=== PATIENT | male | born 1945 | race Caucasian/White ===

== ENCOUNTER → 2020-02-05 11:58 | Outpatient (BNVA) | payer MEDICARE, OTHER, SELFPAY | PROVIDERS: PCP Family Medicine; Visit Provider Family Medicine | DX: E78.5 Hyperlipidemia, unspecified (principal); Z12.5 Encounter for screening for malignant neoplasm of prostate; I10 Essential (primary) hypertension; H61.20 Impacted cerumen, unspecified ear | CPT/HCPCS: 80053; 80061; G0103 ==

== ENCOUNTER 2020-03-19 15:45 | Outpatient (CLI) | payer OTHER, SELFPAY ==
--- NOTE | 2020-03-19 | USCV_ITS ---
Kemar Abel Age: 74 Gender: M : 1945 Exam Date: 03/19/2020 16:11 Ordering Phys: Norris Corona MD Technologist: Natalee Alonso Exam Location: [facility] [place] Indication: CAD BP: / HR: 55 Rhythm: Sinus Technical Quality: Fair MEASUREMENTS (Male / Female) Normal Values 2D ECHO LV Diastolic Diameter PLAX 5.2 cm 4.2 - 5.9 / 3.9 - 5.3 cm LV Systolic Diameter PLAX 3.0 cm LV Chamber Size 6.6 cm IVS Diastolic Thickness 1.7 cm 0.6 - 1.0 / 0.6 - 0.9 cm IVS Systolic Thickness 2.1 cm LVPW Diastolic Thickness 1.3 cm 0.6 - 1.0 / 0.6 - 0.9 cm LVPW Systolic Thickness 1.8 cm RV Chamber Size 4.4 cm LVOT Diameter 2.0 cm LV Ejection Fraction 2D Teich 73.4 % LV Ejection Fraction MOD 2C 61.0 % LV Ejection Fraction 2C AL 64.5 % LA Diameter 4.6 cm LA Width 5.4 cm LA Height 6.6 cm RA Width 3.9 cm RA Height 5.3 cm Aorta at Sinotubular Diameter 3.3 cm M-MODE LV Diastolic Diameter MM 7.4 cm 4.2 - 5.9 / 3.9 - 5.3 cm LV Systolic Diameter MM 4.8 cm LV Ejection Fraction MM Teich 62.2 % IVS Diastolic Thickness MM 0.5 cm 0.6 - 1.0 / 0.6 - 0.9 cm IVS Systolic Thickness MM 1.2 cm LVPW Diastolic Thickness MM 1.2 cm 0.6 - 1.0 / 0.6 - 0.9 cm LVPW Systolic Thickness MM 1.9 cm Aortic Annulus Diameter 3.9 cm LA Ao Ratio MM 1.2 MV E Point Septal Separation 0.3 cm DOPPLER AV Peak Velocity 156.0 cm/s LVOT Peak Velocity 110.0 cm/s AV Area Cont Eq vti 2.6 cm squared AV Area Cont Eq pk 2.3 cm squared MV Area PHT 2.2 cm squared Mitral E to A Ratio 1.5 MV E' Velocity 10.0 cm/s Mitral E to MV E' Ratio 8.3 Mitral E to LV E' Lateral Ratio 8.1 Mitral E to LV E' Septal Ratio 8.4 TR Peak Velocity 282.2 cm/s TR Peak Gradient 31.9 mmHg TR Mean Velocity 229.2 cm/s TR Mean Gradient 22.3 mmHg TR Velocity Time Integral 70.7 cm TV Peak E Velocity 52.0 cm/s Right Atrial Pressure 3.0 mmHg Pulmonary Artery Systolic Pressu 34.9 mmHg PV Peak Velocity 55.0 cm/s FINDINGS Left Ventricle Normal left ventricular cavity size. Normal left ventricular systolic function. No regional wall motion abnormalities. Left ventricular ejection fraction is estimated at 55 %. Grade II/IV diastolic dysfunction, moderately elevated filling pressures. Right Ventricle The right ventricle is normal in size and function. Right Atrium The right atrium is normal in size. Left Atrium Moderately increased left atrial size. Mitral Valve Moderately thickened mitral valve. No mitral valve stenosis. Mild-moderate mitral valve regurgitation. Aortic Valve Moderate aortic valve calcification. No significant stenosis, mean gradient 5.3 mmHg, BILL 2.6 cm squared. Tricuspid Valve Mild tricuspid valve regurgitation. Pulmonic Valve No pulmonary valve stenosis. No pulmonary valve regurgitation. Pericardium Normal pericardium without effusion. Aorta Normal ascending aorta dimension. CONCLUSIONS 1-Normal left ventricular cavity size. Normal left ventricular systolic function. No regional wall motion abnormalities. Left ventricular ejection fraction is estimated at 55 %. Grade II/IV diastolic dysfunction, moderately elevated filling pressures. 2-Moderate aortic valve calcification. No significant stenosis, mean gradient 5.3 mmHg, BILL 2.6 cm squared. 3-Moderately increased left atrial size. 4-Mild tricuspid valve regurgitation. 5-There is no pericardial effusion. 6-Right atrial pressure is around 5 mm of mercury. 7-There are no prior echocardiogram studies to compare. Miles Gibbs MD (Electronically Signed) Final Date: 20 March 2020 19:08 S
== END 2020-03-19 15:46 | disposition home or self-care (01) ==
LOC: US 15:47
PROVIDERS: PCP Family Medicine; Visit Provider Orthopaedic Surgery
DX: I25.10 Atherosclerotic heart disease of native coronary artery without angina pectoris (principal); I70.0 Atherosclerosis of aorta; I07.1 Rheumatic tricuspid insufficiency
CPT/HCPCS: 93306

== ENCOUNTER → 2020-07-21 10:53 | Outpatient (BNVA) | payer MEDICARE, OTHER, SELFPAY | PROVIDERS: PCP Family Medicine; Visit Provider Family Medicine | DX: E78.2 Mixed hyperlipidemia (principal); I10 Essential (primary) hypertension | CPT/HCPCS: 80053; 80061; 85025 ==

== ENCOUNTER → 2021-01-19 09:07 | Outpatient (BNVA) | payer MEDICARE, OTHER, SELFPAY | PROVIDERS: PCP Family Medicine; Visit Provider Family Medicine | DX: E78.2 Mixed hyperlipidemia (principal); I10 Essential (primary) hypertension | CPT/HCPCS: 80053; 80061; 84443; 85025 ==

== ENCOUNTER → 2021-08-18 12:16 | Outpatient (BNVA) | payer MEDICARE, OTHER, SELFPAY | PROVIDERS: PCP Family Medicine; Visit Provider Family Medicine | DX: E78.2 Mixed hyperlipidemia (principal); I10 Essential (primary) hypertension | CPT/HCPCS: 80053; 80061; 84443 ==

== ENCOUNTER → 2021-12-20 11:08 | Outpatient (BNVA) | payer MEDICARE, OTHER, SELFPAY | PROVIDERS: PCP Family Medicine; Visit Provider Family Medicine | DX: E78.5 Hyperlipidemia, unspecified (principal); I10 Essential (primary) hypertension; Z12.5 Encounter for screening for malignant neoplasm of prostate | CPT/HCPCS: 80053; 80061; 85025; G0103 ==

== ENCOUNTER → 2022-06-07 12:24 | Outpatient (BNVA) | payer MEDICARE, OTHER, SELFPAY | PROVIDERS: PCP Family Medicine; Visit Provider Family Medicine | DX: B36.9 Superficial mycosis, unspecified (principal); E78.2 Mixed hyperlipidemia; I10 Essential (primary) hypertension; Z12.5 Encounter for screening for malignant neoplasm of prostate; R60.0 Localized edema; Z23 Encounter for immunization | CPT/HCPCS: 80053; 80061; 84443; 85025; G0103 ==

== ENCOUNTER → 2022-11-30 09:50 | Outpatient (BNVA) | payer MEDICARE, OTHER, SELFPAY | PROVIDERS: PCP Family Medicine; Visit Provider Family Medicine | DX: E78.2 Mixed hyperlipidemia (principal); I10 Essential (primary) hypertension; R60.9 Edema, unspecified | CPT/HCPCS: 80053; 80061; 85025 ==

== ENCOUNTER → 2023-03-20 09:01 | Outpatient (BNVA) | payer MEDICARE, OTHER, SELFPAY | PROVIDERS: PCP Family Medicine; Visit Provider Surgery | DX: K40.90 Unilateral inguinal hernia, without obstruction or gangrene, not specified as recurrent (principal) | CPT/HCPCS: 99203 ==

== ENCOUNTER → 2023-03-27 12:00 | Outpatient (BNVA) | payer MEDICARE, OTHER, SELFPAY | PROVIDERS: PCP Family Medicine; Visit Provider Family Medicine | DX: I10 Essential (primary) hypertension (principal); E78.5 Hyperlipidemia, unspecified; R60.9 Edema, unspecified | CPT/HCPCS: 80053; 80061; 84443; 85025 ==

== ENCOUNTER → 2023-04-23 11:15 | Day surgery (SDC) | payer MEDICARE, OTHER, SELFPAY ==
[2023-04-23] VITALS (10 sets, daily range): BP systolic 150–172; BP diastolic 70–86; PULSE 51–56; RESP 12–22; TEMP 36.3–36.8; O2SAT 96–100
--- NOTE | 2023-04-23 11:58 | ECG_ITS ---
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 Measurements Intervals [place] Rate: 50 P: 91 NV: 205 QRS: 22 QRSD: 131 T: 46 QT: 494 QTc: 454 Interpretive Statements SINUS BRADYCARDIA INTRAVENTRICULAR CONDUCTION DELAY [130+ ms QRS DURATION] No previous ECG available for comparison Electronically Signed On 04-23-2023 17:17:34 CDT by Sheba Patel M.D. [id number]
[2023-04-23] MEDS: sodium chloride 0.9% 1,000 ML 30 ML IV (12:00)
[2023-04-23 13:11] LABS: Anion Gap 15.5 (5-19); Blood Urea Nitrogen 24 mg/dL (8-23); Calcium 9.6 mg/dL (8.5-10.5); Carbon Dioxide 29 mmol/L (22-29); Chloride 101 mmol/L (98-107); Glucose 97 mg/dL (65-115); Osmolality Calculated 298 mOsm/kg (285-295); Potassium 3.5 mmol/L (3.5-5.1); Sodium 142 mmol/L (136-145)
--- NOTE | 2023-04-23 14:40 | PM.HP ---
Providers/Chief Complaint Primary Care Provider: Dorcas Rodriguez MD Chief Complaint: 99877 K40.90 History of Present Illness Kemar Abel is a 78 year old male Medications/Allergies Home Medications Medication Instructions Recorded Confirmed Last Taken Type aspirin 81 mg tablet,delayed 81 mg PO DAILY 02/05/20 04/23/23 04/19/23 History release (Adult Low Dose Aspirin) omega 5-jge-nbh-fish oil 1,200 mg 1 cap PO DAILY 08/18/21 04/23/23 04/22/23 History (144 mg-216 mg) capsule (Fish Oil) vitamin A-vit C-vit E-zinc-Cu 2 tab PO BID 08/18/21 04/23/23 04/22/23 History tablet ketoconazole 2 % topical cream 1 applic topical BID #60 grams 02/20/23 04/23/23 04/22/23 Rx potassium chloride 10 mEq See Rx Instructions .Route 03/22/23 04/23/23 04/22/23 Rx capsule,extended release .COMPLEX #30 caps benzonatate 100 mg capsule 100 mg PO TID #30 caps 03/27/23 04/20/23 Unknown Rx ezetimibe 10 mg tablet See Rx Instructions .Route 03/27/23 04/23/23 04/22/23 Rx .COMPLEX #90 tabs lisinopril 20 1 tab PO BID #60 tabs 03/27/23 04/23/23 04/22/23 Rx mg-hydrochlorothiazide 12.5 mg tablet metoprolol succinate 100 mg See Rx Instructions .Route 03/27/23 03/27/23 04/23/23 Rx tablet,extended release 24 hr .COMPLEX #90 tabs rosuvastatin 40 mg tablet See Rx Instructions .Route 03/27/23 04/23/23 04/22/23 Rx .COMPLEX #30 tabs trazodone 100 mg tablet 100 mg PO DAILY #30 tabs 03/27/23 04/23/23 04/22/23 Rx furosemide 40 mg tablet 40 mg PO BID #60 tabs 04/04/23 04/23/23 04/22/23 Rx Allergies Allergy/AdvReac Type Severity Reaction Status Date / Time Sulfa (Sulfonamide Allergy Severe Unconscious Verified 04/20/23 10:45 Antibiotics) PFSH Acute PFSH: Medical History Gastroesophageal reflux disease Hyperlipidemia Hypertension Surgical History History of colonoscopy Social History Smoking and tobacco status: never smoked Second hand smoke exposure: No Alcohol intake: never Substance/Drug Use: never Caregiver/support person: No Lives independently: Yes Household members: spouse Marital status: service: No Current occupational status: retired Current occupation: [employer] Current gender identity: Male Special solitario needs: No Vitals/I&O/Wt Last Vital Signs Temp 97.4 F L 04/23/23 11:45 Pulse 52 L 04/23/23 11:45 Resp 18 04/23/23 11:45 BP 157/70 04/23/23 11:45 Pulse Ox 96 04/23/23 11:45 O2 Del Method Room Air 04/23/23 11:45 Data 04/23/23 11:56 A&P Assessment and plan (1) Left inguinal hernia: Plan Laparoscopic left inguinal hernia repair with mesh Attestations Medical Necessity Statement*: Home Coding Level of Care Code Acute Code for Chg Fwd Diagnoses Left inguinal hernia K40.90
[2023-04-23] MEDS: ceFAZolin 2,000 MG in sodium chloride 0.9% (plus) 50 ML 100 MG IV (15:01)
[2023-04-23] MEDS: lidocaine-epi 2% 20 mL INJ INJECTION (15:41)
--- NOTE | 2023-04-23 15:53 | PM.OP ---
Operative Report Date of procedure: April 23, 2023 Pre-op diagnosis: Left inguinal hernia Post-op diagnosis: same Procedure done: Laparoscopic (TEPP) repair of left inguinal hernia with mesh Implants: Extra-large left 3D max Bard mesh Specimens removed/disposition: None Surgeon: Dr. Cornelius De Jesus DO Anesthesia: General Estimated blood loss (mL): 5 Complications: None apparent Brief History: This is a very pleasant 78-year-old gentleman who presented to my office with a reducible left inguinal hernia. Laparoscopic repair with mesh was indicated. The risk and benefits were explained and documented. Procedure: Patient was wheeled into the operative room and placed on the OR table in a supine position. Abdomen was inspected prepped and draped in usual sterile fashion. Time-out was performed and all present were in agreement. A 15 blade scalpel was used to make 1.2 centimeter incision infraumbilically. Combination of sharp and blunt dissection was performed down to the anterior rectus sheath which was opened sharply. The dissecting balloon was then inserted into the space of Retzius and blown up. We put the camera into the port and identified that we were in the correct space. I then placed 2 5 millimeter trocars suprapubically in the midline. I then used endokitners to bluntly dissect in the space of Retzius out laterally. An indirect inguinal hernia was identified on the left. Blunt dissection was performed to dissect down the hernia sac until the vas deferens dove medially. An extra-large left inguinal mesh was then placed into the space of Retzius. The mesh was unrolled and tacked once medially at the pubic bone. The mesh laid out nicely over the spermatic cord. Photos were taken of the mesh laid out and the hernia sac laid underneath the mesh. I watched the hernia sac remained in place as insufflation was removed. Incisions were closed with 4-0 Monocryl in a subcuticular interrupted fashion. Skin glue was applied. Patient tolerated the procedure well.
[2023-04-23] MEDS: HYDROcodone-acetaminophen 10-325 mg Tablet 1 TAB PO (16:47)
--- NOTE | 2023-04-23 16:54 | ANES.PREANE2 ---
Pre-Anesthetic Assessment Height/Weight: Height 1.83 m Weight 88.904 kg Temp Pulse Resp BP Pulse Ox O2 Del Method O2 Flow Rate 98.2 F 51 L 22 H 162/78 99 Room Air 6 04/23/23 16:05 04/23/23 16:35 04/23/23 16:35 04/23/23 16:35 04/23/23 16:35 04/23/23 16:35 04/23/23 16:06 Operation Date: 04/23/23 13:05 Proposed Procedures p lap left ingunial hernia repair with mesh 56980,K40.90(Left) - Cornelius De Jesus DO Familial anesthetic complications: none Was Beta Brooks taken within 24 hours: Yes Was Clonidine taken within 24 hours: N/A Last intake: Intake Last Liquid Date 04/22/23 Last Liquid Time 21:30 Last Solid Date 04/22/23 Last Solid Time 12:00 Social No alcohol and No tobacco Exam alert, oriented x 3, clear to auscultation bilaterally and regular rate & rhythm Airway Submandibular: within normal limits Cervical ROM: within normal limits Mallampati: Class II Dentition: caps and full CV/HEM Hypertension Metabolic Hyperlipidemia Anesthetic Plan ASA status: 2 Anesthesia: General Medications/Allergies Home Medications Medication Instructions Recorded Confirmed Last Taken Type aspirin 81 mg tablet,delayed 81 mg PO DAILY 02/05/20 04/23/23 04/19/23 History release (Adult Low Dose Aspirin) omega 6-dsb-pug-fish oil 1,200 mg 1 cap PO DAILY 08/18/21 04/23/23 04/22/23 History (144 mg-216 mg) capsule (Fish Oil) vitamin A-vit C-vit E-zinc-Cu 2 tab PO BID 08/18/21 04/23/23 04/22/23 History tablet ketoconazole 2 % topical cream 1 applic topical BID #60 grams 02/20/23 04/23/23 04/22/23 Rx potassium chloride 10 mEq See Rx Instructions .Route 03/22/23 04/23/23 04/22/23 Rx capsule,extended release .COMPLEX #30 caps benzonatate 100 mg capsule 100 mg PO TID #30 caps 03/27/23 04/20/23 Unknown Rx ezetimibe 10 mg tablet See Rx Instructions .Route 03/27/23 04/23/23 04/22/23 Rx .COMPLEX #90 tabs lisinopril 20 1 tab PO BID #60 tabs 03/27/23 04/23/23 04/22/23 Rx mg-hydrochlorothiazide 12.5 mg tablet metoprolol succinate 100 mg See Rx Instructions .Route 03/27/23 03/27/23 04/23/23 Rx tablet,extended release 24 hr .COMPLEX #90 tabs rosuvastatin 40 mg tablet See Rx Instructions .Route 03/27/23 04/23/23 04/22/23 Rx .COMPLEX #30 tabs trazodone 100 mg tablet 100 mg PO DAILY #30 tabs 03/27/23 04/23/23 04/22/23 Rx furosemide 40 mg tablet 40 mg PO BID #60 tabs 04/04/23 04/23/23 04/22/23 Rx docusate sodium 100 mg capsule 100 mg PO BID #14 caps 04/23/23 Unknown Rx (DOK) hydrocodone 10 mg-acetaminophen 1 tab PO Q6H PRN pain #20 tabs 04/23/23 Unknown Rx 325 mg tablet Allergies Allergy/AdvReac Type Severity Reaction Status Date / Time Sulfa (Sulfonamide Allergy Severe Unconscious Verified 04/20/23 10:45 Antibiotics) Current Medications Generic Name Dose Route Start Last Admin Trade Name Freq PRN Reason Stop Dose Admin Sodium Chloride 1,000 mls @ 30 mls/hr 04/23/23 11:45 04/23/23 12:00 Sodium Chloride 0.9% IV 04/24/23 11:44 30 mls/hr .Q24H TIFFANY Administration PFSH Anesthesia Medical History Gastroesophageal reflux disease Hyperlipidemia Hypertension Surgical History History of colonoscopy Social History Smoking and tobacco status: never smoked Second hand smoke exposure: No Alcohol intake: never Substance/Drug Use: never Caregiver/support person: No Lives independently: Yes Household members: spouse Marital status: service: No Current occupational status: retired Current occupation: [employer] Current gender identity: Male Special solitario needs: No Data Anesthesia 04/23/23 11:56 BMP 04/23/23 11:56 Sodium 142 Potassium 3.5 Chloride 101 Carbon Dioxide 29 BUN 24 H Creatinine 1.0 Glucose 97 Calcium 9.6 Cardiac Studies: Echocardiogram Ultrasound 03/19/20
--- NOTE | 2023-04-23 16:55 | ANE.PACU2 ---
Inpatient post-anesthesia follow up: Airway intact: Yes Vital signs: Temperature 98.2 F Pulse Rate 51 Respiratory Rate 22 Blood Pressure 162/78 Pulse Oximetry 99 Oxygen Delivery Me thod Room Air Oxygen Flow Rate 6 Fraction of Inspir ed Oxygen Hydration adequate: Yes Nausea and vomiting: No Pain level: 3 Mental status: Baseline
== END | disposition home or self-care (01) ==
PROVIDERS: Anesthesiology; PCP Family Medicine; Visit Provider Surgery
PROC: (CPT 49650; principal; 2023-04-23 13:05)
DX: K40.90 Unilateral inguinal hernia, without obstruction or gangrene, not specified as recurrent (principal); I10 Essential (primary) hypertension; E78.5 Hyperlipidemia, unspecified; Z79.82 Long term (current) use of aspirin
CPT/HCPCS: 49650; 36415; 51702; 80048; 93005; J0690; J1100; J2405; J2704; J2710; J3010; J3490; J7030

== ENCOUNTER → 2023-04-24 16:02 | Outpatient (BNVA) | payer MEDICARE, OTHER, SELFPAY | PROVIDERS: PCP Family Medicine; Visit Provider Surgery | DX: N99.89 Other postprocedural complications and disorders of genitourinary system (principal); R33.8 Other retention of urine; Z98.890 Other specified postprocedural states | CPT/HCPCS: 99024 ==

== ENCOUNTER → 2023-05-08 09:11 | Outpatient (BNVA) | payer MEDICARE, OTHER, SELFPAY | PROVIDERS: PCP Family Medicine; Visit Provider Surgery | DX: Z98.890 Other specified postprocedural states (principal); Z87.19 Personal history of other diseases of the digestive system | CPT/HCPCS: 99024 ==

== ENCOUNTER → 2023-06-27 10:45 | Outpatient (BNVA) | payer MEDICARE, OTHER, SELFPAY | PROVIDERS: PCP Family Medicine; Visit Provider Family Medicine | DX: G47.00 Insomnia, unspecified; I10 Essential (primary) hypertension; R60.9 Edema, unspecified; Z12.5 Encounter for screening for malignant neoplasm of prostate; E78.2 Mixed hyperlipidemia | CPT/HCPCS: 80053; 80061; 84443; 85025; G0103 ==

== ENCOUNTER → 2023-12-13 13:16 | Outpatient (BNVA) | payer MEDICARE, OTHER, SELFPAY | PROVIDERS: PCP Family Medicine; Visit Provider Family Medicine | DX: I10 Essential (primary) hypertension (principal); E78.2 Mixed hyperlipidemia; G47.00 Insomnia, unspecified; R60.0 Localized edema; R97.20 Elevated prostate specific antigen [PSA]; Z78.9 Other specified health status | CPT/HCPCS: 80053; 80061; 84153; 84443; 85025 ==

== ENCOUNTER → 2024-05-15 10:23 | Outpatient (BNVA) | payer MEDICARE, OTHER, SELFPAY | PROVIDERS: PCP Family Medicine; Visit Provider Family Medicine | DX: Z12.5 Encounter for screening for malignant neoplasm of prostate (principal); I10 Essential (primary) hypertension; E78.2 Mixed hyperlipidemia; G47.00 Insomnia, unspecified | CPT/HCPCS: 80053; 80061; 84443; 85025; G0103 ==

== ENCOUNTER 2024-08-20 08:05 | Emergency (ER) | payer MEDICARE, OTHER, SELFPAY ==
[2024-08-20 08:37] VITALS: BP 122/67; PULSE 42; RESP 16; TEMP 36.8; O2SAT 97; BMI 26.2
--- NOTE | 2024-08-20 10:12 | CT_ITS ---
WS: [id number] CT scan of the abdomen and pelvis without contrast additional two-dimensional coronal and sagittal re construction was performed. 08/20/2024 Clinical Data: right flank pain Comparison: CT abdomen pelvis, 09/04/2008 DLP: 879.[address] scans at [facility] use at least one of these dose optimization techniques: automated e xposure control; mA and/or kV adjustment per patient size (includes targeted exams where dose is matc hed to clinical indication); or iterative reconstruction. Findings: The lower lungs show no nodules, masses or effusions. There is coronary artery and mitral valve calci fication.1 The gallbladder, spleen and pancreas are normal. There are numerous low-density areas in the right l obe of the liver unchanged which probably represent simple cysts. There is a 2.0 cm right adrenal elma noma little changed. The kidneys show several low-density areas consistent with cysts unchanged, and no renal or ureteral calculi are seen. There is no renal pelvic dilatation or hydronephrosis. The abdominal aorta is normal in size with calcification in the wall. The iliac arteries show calcifi cation in the wall. No appendicitis or diverticulitis is seen. The stomach, small bowel and colon show no abnormalities. The bladder is unremarkable with no calculi within. There are bilateral fat-containing inguinal herni as. There is an area of low density measuring 3.4 x 8.1 cm in the right anterior rectus muscle. This could represent a hematoma, an inflammatory fluid collection or benign fluid collection. The prostate is enlarged. The bones of the lower thorax, lumbar spine, pelvis, and hips show osteoarthritis, osteoporosis and m ultiple disc narrowing. CT/CT kidney stone [id number] Impression: 1. Negative for renal or ureteral calculi. 2. Numerous liver and renal cysts unchanged. 3. Little change in right adrenal adenoma. 4. Fluid collection in right anterior rectus muscle of unknown etiology.
--- NOTE | 2024-08-20 10:13 | W.ED.ABDPA2 ---
HPI - Abdominal Pain General: Chief Complaint: Abdominal Pain Stated Complaint: Right side, lower back pain Time Seen by Provider: 08/20/24 08:14 Source: patient Mode of arrival: ambulatory Limitations: no limitations History of Present Illness: 79-year-old male states that over the last 3 to 4 days been having some right lower back pain he states it has been a sharp pain states it is improved at rest laying in the bed currently is in no pain but is worse with movement denies any injuries denies any vomiting or diarrhea denies any leg weakness. Associated Symptoms: Denies chills, diarrhea, dysuria, fever(s), nausea and vomiting Related Data Home Medications Medication Instructions Recorded Confirmed aspirin 81 mg tablet,delayed 81 mg PO DAILY 02/05/20 07/03/24 release (Adult Low Dose Aspirin) omega 6-yde-woo-fish oil 1,200 mg 1 cap PO DAILY 08/18/21 07/03/24 (144 mg-216 mg) capsule (Fish Oil) vitamin A-vit C-vit E-zinc-Cu 2 tab PO BID 08/18/21 07/03/24 tablet Previous Rx's Medication Instructions Recorded docusate sodium 100 mg capsule 100 mg PO BID #14 caps 04/23/23 (DOK) ketoconazole 2 % topical cream 1 applic topical BID #60 grams 12/13/23 diazepam 5 mg tablet (Valium) 5 mg PO BID PRN anxiety #60 tabs 05/15/24 ezetimibe 10 mg tablet See Rx Instructions .Route 05/15/24 .COMPLEX #90 tabs finasteride 5 mg tablet (Proscar) 5 mg PO DAILY #90 tabs 05/15/24 furosemide 40 mg tablet 40 mg PO BID #180 tabs 05/15/24 lisinopril 20 See Rx Instructions .Route 05/15/24 mg-hydrochlorothiazide 12.5 mg .COMPLEX #180 tabs tablet metoprolol succinate 100 mg See Rx Instructions .Route 05/15/24 tablet,extended release 24 hr .COMPLEX #90 tabs potassium chloride 10 mEq See Rx Instructions .Route 05/15/24 capsule,extended release .COMPLEX #90 caps rosuvastatin 40 mg tablet See Rx Instructions .Route 05/15/24 .COMPLEX #90 tabs trazodone 100 mg tablet See Rx Instructions .Route 05/15/24 .COMPLEX #90 tabs Allergies Allergy/AdvReac Type Severity Reaction Status Date / Time Sulfa (Sulfonamide Allergy Severe Unconscious Verified 07/03/24 14:34 Antibiotics) Review of Systems Const: Denies: fever(s), chills, body aches or change in appetite ENMT: Denies: throat pain or dental pain Card: Denies: chest pain Resp: Denies: dyspnea GI: Reports: abdominal pain; Denies: nausea, vomiting or diarrhea : Denies: dysuria Musc: Reports: back pain; Denies: neck pain Skin/Breast: Denies: rash Neuro: Denies: headache(s) PFSH ED PFSH: Medical History Hypertension Hyperlipidemia Gastroesophageal reflux disease Surgical History H/O left inguinal hernia repair History of colonoscopy Social History Smoking and tobacco/nicotine status: never used tobacco/nicotine Second hand smoke exposure: No Alcohol intake: never Substance/Drug Use: never Caregiver/support person: No Lives independently: Yes Household members: spouse Marital status: service: No Current occupational status: retired Current occupation: [employer] Current gender identity: Male Special solitario needs: No Physical Exam Const: COMMON NORMALS: no acute distress, patient oriented x3 and healthy appearing HENMT: COMMON NORMALS: normocephalic and atraumatic HEAD & SCALP: normocephalic and atraumatic Eye: COMMON NORMALS: conjunctivae normal CONJUNCTIVA: Yes conjunctivae normal Neck/C-Spine: COMMON NORMALS: full ROM and supple Chest: COMMONS NORMALS: normal inspection of the chest Resp: COMMON NORMALS: normal respiratory effort, No retractions, No use of accessory muscles and clear to auscultation bilaterally AUSCULTATION: clear to auscultation bilaterally Cardio: COMMON NORMALS: regular rate, regular rhythm and No murmurs present (Cardio) RATE: regular rate RHYTHM: regular rhythm GI: COMMON NORMALS: Normal to inspection, nondistended, normoactive bowel sounds present, Soft to palpation, non-tender and no masses PALPATION: Yes Soft to palpation Back/Pelvis: OTHER: Right lower back tenderness no midline tenderness no saddle anesthesia Extremity: COMMON NORMALS: normal to inspection and full ROM Neuro: COMMON NORMALS: patient oriented x3, moves all extremities and no focal motor deficits Psych: COMMON NORMALS: mental status grossly normal, Normal thought process present and cooperative THOUGHT PROCESS: Normal thought process present Skin: COMMON NORMALS: no rashes or lesions noted and no wounds GENERAL SKIN EXAM: no rashes or lesions noted Course Vital Signs: Vital signs: Vital Signs Temperature 98.2 F 08/20/24 08:37 Pulse Rate 42 L 08/20/24 08:37 Respiratory Rate 16 08/20/24 08:37 Blood Pressure 122/67 08/20/24 08:37 Pulse Oximetry 97 08/20/24 08:37 Oxygen Delivery Me thod Room Air 08/20/24 08:37 MDM - Abdominal Pain Medical Decision Making Patient presents with right low back pain could be muscular in nature did see a small fluid collection in the psoas muscle could be hematoma his white count is normal no signs of abscess abdominal exam here is benign he is pain-free at rest we will get him follow-up with his PCP return if worsening he understands agrees to plan Medical Records I reviewed the patient's medical records. Lab Data I reviewed the patient's lab results. 08/20/24 10:20 08/20/24 10:20 Labs/Radiology: Radiology Impressions Abdomen/Pelvis CT 08/20/24 10:12 Impression: 1. Negative for renal or ureteral calculi. 2. Numerous liver and renal cysts unchanged. 3. Little change in right adrenal adenoma. 4. Fluid collection in right anterior rectus muscle of unknown etiology. Laboratory Results WBC 5.32 10^3/uL (3.29-11.43) 08/20/24 10:20 RBC 5.14 10^6/uL (3.85-5.65) 08/20/24 10:20 Hgb 14.40 g/dL (11.27-16.99) 08/20/24 10:20 Hct 44.2 % (37-53) 08/20/24 10:20 MCV 86.0 fl (82-101) 08/20/24 10:20 MCH 28.0 pg (27-33) 08/20/24 10:20 MCHC 32.6 g/dL (30-55) 08/20/24 10:20 RDW 13.7 % (12.1-15.1) 08/20/24 10:20 Plt Count 134 10^3/cmm (157-399) L 08/20/24 10:20 MPV 9.7 fL (7.4-10.4) 08/20/24 10:20 Neut % (Auto) 61.8 % 08/20/24 10:20 Lymph % (Auto) 22.6 % 08/20/24 10:20 [place] % (Auto) 11.8 % 08/20/24 10:20 Eos % (Auto) 2.8 % 08/20/24 10:20 Baso % (Auto) 0.4 % 08/20/24 10:20 Neut # (Auto) 3.29 10^3/uL (1.8-7.7) 08/20/24 10:20 Lymph # (Auto) 1.2 10^3/uL (0.8-4.8) 08/20/24 10:20 Gooding # (Auto) 0.6 10^3/uL (0.2-0.9) 08/20/24 10:20 Eos # (Auto) 0.2 10^3/uL (0.0-0.8) 08/20/24 10:20 Baso # (Auto) 0.0 10^3/uL (0.0-0.1) 08/20/24 10:20 Nucleated RBC % (auto) 0 % 08/20/24 10:20 Nucleated RBCs # 0.0 /100WBC 08/20/24 10:20 Sodium 139 mmol/L (136-145) 08/20/24 10:20 Potassium 3.9 mmol/L (3.5-5.1) 08/20/24 10:20 Chloride 100 mmol/L (98-107) 08/20/24 10:20 Carbon Dioxide 28 mmol/L (22-29) 08/20/24 10:20 Anion Gap 14.9 (5-19) 08/20/24 10:20 BUN 23 mg/dL (8-23) 08/20/24 10:20 Creatinine 0.7 mg/dL (0.7-1.2) 08/20/24 10:20 GFR Calculation Not Reportable 08/20/24 10:20 Glucose 104 mg/dL (65-115) 08/20/24 10:20 Calculated Osmolality 292 mOsm/kg (285-295) 08/20/24 10:20 Calcium 9.7 mg/dL (8.5-10.5) 08/20/24 10:20 Total Bilirubin 0.5 mg/dL (0.15-1.2) 08/20/24 10:20 AST 21 U/L (0-40) 08/20/24 10:20 ALT 21 U/L (0-41) 08/20/24 10:20 Alkaline Phosphatase 78 U/L (40-130) 08/20/24 10:20 Total Protein 7.0 g/dL (6.6-8.7) 08/20/24 10:20 Albumin 4.2 g/dL (3.5-5.2) 08/20/24 10:20 Globulin 2.8 g/dL (1.3-4.6) 08/20/24 10:20 Urine Color Yellow (Yellow) 08/20/24 11:02 Urine Appearance Clear (CLEAR) 08/20/24 11:02 Urine pH 7.0 (5-7) 08/20/24 11:02 Ur Specific [place] 1.023 (1.005-1.030) 08/20/24 11:02 Urine Protein Negative (Negative) 08/20/24 11:02 Urine Glucose (UA) Negative (Normal) 08/20/24 11:02 Urine Ketones Negative (Negative) 08/20/24 11:02 Urine Blood Negative (Negative) 08/20/24 11:02 Urine Nitrate Negative (Negative) 08/20/24 11:02 Urine Bilirubin Negative (Negative) 08/20/24 11:02 Urine Urobilinogen 1.0 mg/dL (Negative) 08/20/24 11:02 Ur Leukocyte Esterase Negative (Negative) 08/20/24 11:02 Amorphous Sediment Not Reportable 08/20/24 11:02 All radiology interpretation(s) finalized by discharge Discharge Plan Discharge Patient Disposition: Home Clinical Impression: Low back pain Condition: Stable Prescriptions: No Action aspirin [Adult Low Dose Aspirin] 81 mg tablet,delayed release (DR/EC) 81 mg PO DAILY vitamin A-vit C-vit E-zinc-Cu Tablet 2 tab PO BID omega 6-vuc-cke-fish oil [Fish Oil] 1,200 (144-216) mg capsule 1 cap PO DAILY ketoconazole 2 % cream 1 applic topical BID Qty: 60 2RF ezetimibe 10 mg tablet See Rx Instructions .ROUTE .COMPLEX Qty: 90 1RF Dose Instruction: TAKE ONE TABLET BY MOUTH DAILY Rx Instructions: TAKE ONE TABLET BY MOUTH DAILY diazepam [Valium] 5 mg tablet 5 mg PO BID PRN (Reason: anxiety) Qty: 60 0RF finasteride [Proscar] 5 mg tablet 5 mg PO DAILY Qty: 90 2RF furosemide 40 mg tablet 40 mg PO BID Qty: 180 1RF Rx Instructions: AM AND 2PM lisinopril-hydrochlorothiazide 20-12.5 mg tablet See Rx Instructions .ROUTE .COMPLEX Qty: 180 1RF Dose Instruction: TAKE ONE TABLET BY MOUTH TWICE DAILY Rx Instructions: TAKE ONE TABLET BY MOUTH TWICE DAILY metoprolol succinate 100 mg tablet extended release 24 hr See Rx Instructions .ROUTE .COMPLEX Qty: 90 1RF Dose Instruction: TAKE ONE TABLET BY MOUTH EVERY DAY. Rx Instructions: TAKE ONE TABLET BY MOUTH EVERY DAY. potassium chloride 10 mEq capsule, extended release See Rx Instructions .ROUTE .COMPLEX Qty: 90 1RF Dose Instruction: TAKE ONE CAPSULE BY MOUTH DAILY Rx Instructions: TAKE ONE CAPSULE BY MOUTH DAILY rosuvastatin 40 mg tablet See Rx Instructions .ROUTE .COMPLEX Qty: 90 4RF Dose Instruction: TAKE ONE TABLET BY MOUTH EVERY DAY Rx Instructions: TAKE ONE TABLET BY MOUTH EVERY DAY trazodone 100 mg tablet See Rx Instructions .ROUTE .COMPLEX Qty: 90 1RF Dose Instruction: TAKE ONE TABLET BY MOUTH DAILY Rx Instructions: TAKE ONE TABLET BY MOUTH DAILY DOK 100 mg capsule 100 mg PO BID Qty: 14 0RF Discharge Orders: Discharge ED (Routine); Ordered 08/20/24 Ordered By: Nura Glass Referrals: Dorcas Rodriguez MD [Primary Care Provider] - Discharge Diet: Advance as tolerated Discharge Activity: Resume usual activity Patient Instructions: Back Pain (ED) Coding Level of Care Code ED Scarf And Anneal Operator for Qu[place] Salmon
[2024-08-20] MEDS: ketorolac 30 mg/mL INJ 15 MG IVP (10:22)
[2024-08-20 10:32] LABS: Basophils % 0.4 %; Eosinophils # 0.2 10^3/uL (0.0-0.8); Eosinophils % 2.8 %; Hematocrit 44.2 % (37-53); Lymphocytes # 1.2 10^3/uL (0.8-4.8); Lymphocytes % 22.6 %; Mean Corpuscular HGB Conc 32.6 g/dL (30-55); Mean Platelet Volume 9.7 fL (7.4-10.4); Monocytes # 0.6 10^3/uL (0.2-0.9); Monocytes % 11.8 %; Neutrophils # 3.29 10^3/uL (1.8-7.7); Neutrophils % 61.8 %; Nucleated Red Blood Cells % 0 %; Platelet Count 134 10^3/cmm (157-399); Red Blood Count 5.14 10^6/uL (3.85-5.65); Red Cell Distribution Width 13.7 % (12.1-15.1); White Blood Count 5.32 10^3/uL (3.29-11.43)
[2024-08-20 10:51] LABS: Alanine Aminotransferase 21 U/L (0-41); Albumin Level 4.2 g/dL (3.5-5.2); Alkaline Phosphatase 78 U/L (40-130); Anion Gap 14.9 (5-19); Aspartate Amino Transferase 21 U/L (0-40); Blood Urea Nitrogen 23 mg/dL (8-23); Calcium 9.7 mg/dL (8.5-10.5); Carbon Dioxide 28 mmol/L (22-29); Chloride 100 mmol/L (98-107); Globulin 2.8 g/dL (1.3-4.6); Glucose 104 mg/dL (65-115); Osmolality Calculated 292 mOsm/kg (285-295); Potassium 3.9 mmol/L (3.5-5.1); Sodium 139 mmol/L (136-145); Total Bilirubin 0.5 mg/dL (0.15-1.2)
[2024-08-20 11:05] LABS: Add Urine Microscopic? NO
[2024-08-20 11:16] LABS: Bilirubin Urine Negative (Negative); Blood Urine Negative (Negative); Glucose Urine UA Negative (Normal); Ketones Urine Negative (Negative); Leukocyte Esterase Urine Negative (Negative); Nitrate Urine Negative (Negative); Protein Urine Negative (Negative); Specific Gravity, Urine 1.023 (1.005-1.030); Urine Appearance Clear (CLEAR); Urine Color Yellow (Yellow)
[2024-08-20 11:17] LABS: Add Urine Culture? No; Charge for UA Resulting for Rev
[2024-08-20 11:19] LABS: Bacteria Urine None Seen /hpf; Hyaline Casts Urine 0-4 /lpf; Squamous Epithelial Cell Urine 0-5 /hpf (0-5); WBC Urine 0-5 /hpf (0-5)
[2024-08-20 11:23] VITALS: BP 119/54; PULSE 43; O2SAT 100
[2024-08-20 11:27] VITALS: BP 119/54; PULSE 43; O2SAT 99
--- NOTE | 2024-08-21 09:35 | DCPLANNER ---
riley alexander clinical team.
== END 2024-08-20 11:35 | disposition home or self-care (01) ==
PROVIDERS: Family Medicine; Emergency Provider Emergency Medicine; PCP Family Medicine
DX: M54.50 Low back pain, unspecified (principal); Z79.82 Long term (current) use of aspirin; E78.5 Hyperlipidemia, unspecified; I10 Essential (primary) hypertension
CPT/HCPCS: 74176; 80053; 81003; 85025; 96374; 99285; J1885

== ENCOUNTER 2024-12-25 09:54 | Outpatient (CLI) | payer MEDICARE, OTHER, SELFPAY ==
--- NOTE | 2024-12-25 10:02 | USCV_ITS ---
Kemar Abel Age: 79 Gender: M : 1945 Exam Date: 12/25/2024 10:06 Ordering Phys: Manuel Craig MD Technologist: Exam Location: [facility] [place] Indication: cp sob BP: 110 / 70 HR: 75 Rhythm: Sinus Technical Quality: Fair MEASUREMENTS (Male / Female) Normal Values 2D ECHO LV Diastolic Diameter PLAX 5.3 cm 4.2 - 5.9 / 3.9 - 5.3 cm IVS Diastolic Thickness 1.5 cm 0.6 - 1.0 / 0.6 - 0.9 cm IVS Systolic Thickness 2.0 cm LVPW Diastolic Thickness 1.5 cm 0.6 - 1.0 / 0.6 - 0.9 cm LVPW Systolic Thickness 1.7 cm LVOT Diameter 2.8 cm LV Ejection Fraction 2D Teich 63.4 % LV Ejection Fraction MOD 4C 66.1 % LV Ejection Fraction MOD 2C 65.2 % LV Ejection Fraction 2C AL 66.3 % LA Diameter 4.7 cm RA Systolic Volume 4C AL 42.8 ml RA Systolic Volume 4C MOD 44.4 ml Aorta at Sinotubular Diameter 3.2 cm M-MODE LA Ao Ratio MM 1.2 AV Cusp Separation MM 2.6 cm DOPPLER AV Peak Velocity 134.7 cm/s LVOT Peak Velocity 76.0 cm/s AV Area Cont Eq vti 4.4 cm squared AV Area Cont Eq pk 3.5 cm squared MV Peak Velocity 83.0 cm/s MV Area PHT 3.3 cm squared Mitral E to A Ratio 1.1 TV Peak E Velocity 77.0 cm/s PV Peak Velocity 90.0 cm/s FINDINGS Left Ventricle Normal LV size with a slightly diminished ejection fraction of 50% (visual). Moderate hypokinesia of the basal inferior wall segment Right Ventricle Normal right ventricular size and systolic function. Right Atrium Echodensity in the right atrium, suggesting calcified intracavitary structure, possible eustachian valve Left Atrium Moderately increased left atrial size. Mitral Valve Moderate mitral annular calcification. Mild mitral valve regurgitation. Aortic Valve Thickened aortic valve. Tricuspid Valve No gross abnormalities noted Pulmonic Valve Mild pulmonary valve regurgitation. Pericardium No pericardial effusion. Aorta Normal aortic annulus size. IVC Normal inferior vena cava. CONCLUSIONS Normal LV size with a slightly diminished ejection fraction of 50% (visual). Normal right ventricular size and systolic function. Echodensity in the right atrium, suggesting calcified intracavitary structure, possible eustachian valve Moderately increased left atrial size. Moderate mitral annular calcification. Mild mitral valve regurgitation. Thickened aortic valve. Mild pulmonary valve regurgitation. Moderate hypokinesia of the basal inferior wall segment. There is no pericardial effusion. Because of the differences in the technical quality, comparison with the previous study is difficult. The wall motion abnormality appears to be new Dr Patrica Schaefer MD [facility] (Electronically Signed) Final Date: 25 December 2024 23:02 S
== END 2024-12-25 09:55 | disposition home or self-care (01) ==
LOC: RAD 09:57
PROVIDERS: PCP Family Medicine; Visit Provider Internal Medicine
DX: R60.0 Localized edema (principal); R93.1 Abnormal findings on diagnostic imaging of heart and coronary circulation; I51.7 Cardiomegaly; I34.81 Nonrheumatic mitral (valve) annulus calcification; I34.0 Nonrheumatic mitral (valve) insufficiency; I35.8 Other nonrheumatic aortic valve disorders; I37.1 Nonrheumatic pulmonary valve insufficiency
CPT/HCPCS: 93306

== ENCOUNTER 2025-04-22 12:55 | Emergency (ER) | payer MEDICARE, OTHER, SELFPAY ==
--- OUTSIDE RECORDS SUMMARY | 2024-10-29 08:38 | XMS_ITS | Encounter Summary ---
Author Name [facility] [place] [facility] [place] Address [address] [place] [id number] Support Name Relationship Address Phone ELIECER WYLIE Next of Kin [address] [facility] [place] [address] ELIECER WYLIE Emergency Contact [address] [facility] [place] [address] Insurance Providers: All historical and current Section Date Range: From patient's date of to the date document was created. This section includes the names of all active insurance providers for the patient. Insurance Provider Type of Coverage Plan Name Start of Policy Coverage End of Policy Coverage Group Number Member ID Insurance Provider's Telephone Number Policy Eduardo's Name Patient's Relationship to Policy Eduardo CITIZEN OF [place] F MEDIC ARE SUPPL EMENT Sep 03, 2017 PLAN F [id number] [phone] AJIT WYLIE PATIENT MEDICARE (WNR) MEDICARE (M) PART A Apr 03, 2008 PART A [id number] AJIT WYLIE PATIENT MEDICARE (WNR) MEDICARE (M) PART B Apr 03, 2008 PART B [id number] AJIT WYLIE PATIENT MEDICARE (WNR) MEDICARE (M) PART A Apr 03, 2008 PART A [id number] AJIT WYLIE PATIENT MEDICARE (WNR) MEDICARE (M) PART B Apr 03, 2008 PART B [id number] AJIT WYLIE PATIENT Selected Encounter This section includes the information on record at [place] for the Encounter. Date/Time Encounter Type Encounter Description Reason Pro vider Source Oct 29, 2024 01:38 PM Outpatient Encounter ADMIN PAT ACTIVTIES (MASNONCT) IHE Encounter Template Text not used by [place] Plan of Treatment: Future Appointments (+ 6 months) and Future Tests (+/- 45 days) The Plan of Treatment section includes future care activities for the patient from all [place] [facility] This section includes future appointments and future orders which are active, pending or scheduled. Future Appointments This section includes appointments that were scheduled to occur 6 months from the date of the Encounter, up to a maximum of 20 appointments. The data comes from all [place] treatment facilities. Appointment Date/Time Appointment Type Appointme nt Facility Name Nov 13, 2024 10:45 AM AMBULATORY - [facility]INE [facility] Nov 27, 2024 09:30 AM AMBULATORY - MEDICINE [facility] Nov 27, 2024 09:32 AM [facility] Dec 30, 2024 02:00 PM AMBULATORY - MEDICINE [facility] Dec 30, 2024 02:01 PM [facility] Encounter Notes: All associated encounter notes This section contains the clinical notes associated to the Encounter. Date/Time Encounter Note(s) Provider Source Oct 29, 2024 01:38 PM GENERAL MEDICINE N OTE: LOCAL TITLE: General Note PB STANDARD TITLE: GENERAL MEDICINE NOTE DATE OF NOTE: OCT 29, 2024@13:38 ENTRY DATE: OCT 29, 2024@13:38:35 AUTHOR: NOMI BEJARANO EXP COSIGNER: URGENCY: STATUS: COMPLETED came in complaining his left hearing aid was not working, I did a hard reset on it, veterans fire extinguisher charger was elijah so I cleaned the fire extinguisher charger and verified the hearing aids would charge. The Left one was working when I gave it back to the . Banks was advised to have a new hearing test and discuss options with Corporate Risk Analyst since he has had current pair since 2019. /mamadou/ ALIREZA DOWNEY [facility] Signed: 10/29/2024 13:42 NOMI BEJARANO [facility]
--- OUTSIDE RECORDS SUMMARY | 2024-11-26 05:41 | XMS_ITS | Encounter Summary ---
Author Name [facility] [place] Address [address] [place] [address] Support Name Relationship Address Phone ELIECER WYLIE Next of Kin [address] [facility] [address] ELIECER WYLIE Emergency Contact [address] [facility] [place] [address] Insurance Providers: All historical and current [...] Eduardo's Name Patient's Relationship to Policy Eduardo [place] F MEDIC ARE SUPPL EMENT Sep 03, 2017 PLAN F [id number] [phone] AJIT WYLIE PATIENT MEDICARE (WNR) MEDICARE (M) PART A Apr 03, 2008 PART A [id number] [phone] AJIT WYLIE PATIENT MEDICARE (WNR) MEDICARE (M) PART B Apr 03, 2008 PART B [id number] AJIT WYLIE PATIENT MEDICARE (WNR) MEDICARE (M) PART A Apr 03, 2008 PART A [id number] [phone] AJIT WYLIE PATIENT MEDICARE (WNR) MEDICARE (M) PART B Apr 03, 2008 PART B [id number] AJIT WYLIE PATIENT Selected Encounter This section includes the information on record at [place] for the Encounter. Date/Time Encounter Type Encounter Description Reason Pro vider Source Nov 26, 2024 10:41 AM Outpatient Encounter ADMIN PAT ACTIVTIES (MASNONCT) IHE Encounter Template Text not used by [place] Plan of Treatment: Future Appointments (+ 6 months) and Future Tests (+/- 45 days) The Plan of Treatment section includes future care activities for the patient [facility] [place] [facility]. This section includes future appointments and future orders which are active, pending or scheduled. Future Appointments This section includes appointments that were scheduled to occur 6 months from the date of the Encounter, up to a maximum of 20 appointments. The data comes from all [place] treatment facilities. Appointment Date/Time Appointment Type Appointme nt Facility Name Nov 27, 2024 09:30 AM AMBULATORY - MEDICINE [facility] Nov 27, 2024 09:32 AM [facility]UL[facility]ORY - [facility]ICINE [facility] Dec 30, 2024 02:00 PM AMBULATORY - MEDICINE [facility] Dec 30, 2024 02:01 PM [facility]ULATORY - [facility] Encounter Notes: All associated encounter notes This section contains the clinical notes associated to the Encounter. Date/Time Encounter Note(s) Provider Source Nov 26, 2024 10:41 AM GENERAL MEDICINE N OTE: LOCAL TITLE: General Note PB STANDARD TITLE: GENERAL MEDICINE NOTE DATE OF NOTE: NOV 26, 2024@10:41 ENTRY DATE: NOV 26, 2024@10:41:22 AUTHOR: MARLA REEVES EXP COSIGNER: URGENCY: STATUS: COMPLETED Spoke with , confirmed Audiology appt for 11/27mamadou/ MARLA REEVES Telehealth Clinical Extruder Operator Multiple Signed: 11/26/2024 10:41 MARLA REEVES [facility]
--- OUTSIDE RECORDS SUMMARY | 2024-12-02 09:09 | XMS_ITS | Encounter Summary ---
Author Name [facility] [place] Address [address] [place] [address] Support Name Relationship Address Phone ELIECER WYLIE Next of Kin [address] [place] [address] ELIECER WYLIE Emergency Contact [address] [place] [address] Insurance Providers: All [...] Eduardo's Name Patient's Relationship to Policy Eduardo [place] F MEDIC ARE SUPPL EMENT Sep 03, 2017 PLAN F [id number] [phone] AJIT WYLIE PATIENT MEDICARE (WNR) MEDICARE (M) PART A Apr 03, 2008 PART A [id number] AJIT WYLIE PATIENT MEDICARE (WNR) MEDICARE (M) PART B Apr 03, 2008 PART B [id number] AJIT WYLIE PATIENT MEDICARE (WNR) MEDICARE (M) PART A Apr 03, 2008 PART A [id number] AJIT WYLIE PATIENT MEDICARE (WNR) MEDICARE (M) PART B Apr 03, 2008 PART B [id number] [phone] AJIT WYLIE PATIENT Selected Encounter This section includes the information on record at [place] for the Encounter. Date/Time Encounter Type Encounter Description Reason Pro vider Source Dec 02, 2024 02:09 PM Outpatient Encounter ADMIN PAT ACTIVTIES (MASNONCT) IHE Encounter Template Text not used by [place] Plan of Treatment: Future Appointments (+ 6 months) and Future Tests (+/- 45 days) The Plan of Treatment section includes future care activities for the patient from all [place] treatmentfacilities. This section includes future appointments and future orders which are active, pending or scheduled. Future Appointments This section includes appointments that were scheduled to occur 6 months from the date of the Encounter, up to a maximum of 20 appointments. The data comes from all [place] treatment facilities. Appointment Date/Time Appointment Type Appointme nt Facility Name Dec 30, 2024 02:00 PM AM[facility]ULATORY [facility]ICINE [facility] Dec 30, 2024 02:01 PM [facility]UL[facility]ICINE [facility] Encounter Notes: All associated encounter notes This section contains the clinical notes associated to the Encounter. Date/Time Encounter Note(s) Provider Source Dec 02, 2024 02:09 PM GENERAL MEDICINE N OTE: LOCAL TITLE: General Note PB STANDARD TITLE: GENERAL MEDICINE NOTE DATE OF NOTE: DEC 02, 2024@14:09 ENTRY DATE: DEC 02, 2024@14:09:19 AUTHOR: NOMI BEJARANO EXP COSIGNER: URGENCY: STATUS: COMPLETED Rec'd hearing aids and remote control certified in [facility]. [facility] has upcoming appt for fitting. /mamadou/ ALIREZA DOWNEY [facility] Signed: 12/02/2024 14:10 NOMI BEJARANO [facility]
--- OUTSIDE RECORDS SUMMARY | 2024-12-29 08:34 | XMS_ITS | Encounter Summary ---
Author Name [facility] Organization [facility] Address [address] [place] [address] Support Name Relationship Address Phone ELIECER WYLIE Next of Kin [address] [facility] [place] [id number] ELIECER WYLIE Emergency Contact [address] [facility] [place] [id number] Insurance Providers: All historical and current [...] Eduardo's Name Patient's Relationship to Policy Eduardo [employer] [employer] [place] F MEDIC ARE SUPPL EMENT Sep 03, 2017 PLAN F [id number] [phone] AJIT WYLIE PATIENT MEDICARE (WNR) MEDICARE (M) PART A Apr 03, 2008 PART A [id number] AJIT WYLIE PATIENT MEDICARE (WNR) MEDICARE (M) PART B Apr 03, 2008 PART B [id number] AJIT WYLIE PATIENT MEDICARE (WNR) MEDICARE (M) PART A Apr 03, 2008 PART A [id number] AJIT WYLIE PATIENT MEDICARE (WNR) MEDICARE (M) PART B Apr 03, 2008 PART B [id number] AJIT WYLIE PATIENT Selected Encounter This section includes the information on record at ID for the Encounter. Date/Time Encounter Type Encounter Description Reason Pro vider Source Dec 29, 2024 01:34 PM Outpatient Encounter ADMIN PAT ACTIVTIES (MASNONCT) IHE Encounter Template Text not used by ID Plan of Treatment: Future Appointments (+ 6 months) and Future Tests (+/- 45 days) The Plan of Treatment section includes future care activities for the patient from all [facility]. This section includes future appointments and future orders which are active, pending or scheduled. Future Appointments This section includes appointments that were scheduled to occur 6 months from the date of the Encounter, up to a maximum of 20 appointments. The data comes from all ID treatment facilities. Appointment Date/Time Appointment Type Appointme nt Facility Name Dec 30, 2024 02:00 PM AMBULATORY - MEDICINE [facility] Dec 30, 2024 02:01 PM AMBULATORY - MEDICINE [facility] Encounter Notes: All associated encounter notes This section contains the clinical notes associated to the Encounter. Date/Time Encounter Note(s) Provider Source Dec 29, 2024 01:34 PM GENERAL MEDICINE N OTE: LOCAL TITLE: General Note PB STANDARD TITLE: GENERAL MEDICINE NOTE DATE OF NOTE: DEC 29, 2024@13:34 ENTRY DATE: DEC 29, 2024@13:34:36 AUTHOR: MARLA REEVES EXP COSIGNER: URGENCY: STATUS: COMPLETED Confirmed 12/30/24 Audiology appt /mamadou/ MARLA REEVES Telehealth Clinical Senior Linux Unix Administrator Signed: 12/29/2024 13:34 MARLA REEVES [facility]
--- OUTSIDE RECORDS SUMMARY | 2024-12-30 09:01 | XMS_ITS | Continuity of Care Document ---
Author Name [facility] Organization [facility] Care Team Providers Care Process Inspector Name Role Phone [facility] Unavailable Unavailable Problems Combined list of problems from Department of Defense and Veterans Affairs facilities. It does not include entries that were removed or entered in error. Problem Status Onset Date Problem Type Date of Resolution Comments Source Sensorineural hearing loss of bilateral ears Active Condition [facility] Diagnosis: ICD-10-CM Z46.1 Encounter for fitting and adjustment of hearing aid Active Diagnosis [place] [facility] Diagnosis: ICD-10-CM H90.3 Sensorineural hearing loss, bilateral Active Diagnosis [place] [facility] Diagnosis: ICD-10-CM H61.23 Impacted cerumen, bilateral Active Diagnosis [facility] Immunizations Combined list of available immunizations from the Department of [facility] and [facility] facilities. Immunization Series Date Given Administered By Site Reaction Lot Number CVX Code Drug Case Manager Specialist Status Comments Source ZOSTER RECOMBINANT 1 2024 187 complet ed HISTORICA L INFORMATI ON - FROM [facility] N COVID-19 (MODERNA), MRNA, LNP-S, PF, 50 MCG/0.5 ML (AGES 12+ YEARS) 4 2024 312 complet ed HISTORICA L INFORMATI ON - FROM [facility] RSV, RECOMBINANT, PROTEIN SUBUNIT RSVPREF3, ADJUVANT RECONSTITUTED , 0.5 ML, PF 1 2024 303 complet ed HISTORICA L INFORMATI ON - [facility] INFLUENZA, MDCK, TRIVALENT, PF 3 2023 153 complet ed HISTORICA L INFORMATI ON - FROM [facility] PNEUMOCOCCAL CONJUGATE PCV20, POLYSACCHARID E [id number] CONJUGATE, ADJUVANT, PF 2 2023 216 complet ed [facility] L [facility]FORMATI ON [facility] 1 2023 115 complet ed HISTORICA L INFORMATI ON - FROM OTHER REGISTRY, [facility] INFLUENZA, SPLIT VIRUS, QUADRIVALENT, PF 2022 150 complet ed HISTORICA L INFORMATI ON - [facility] PNEUMOCOCCAL POLYSACCHARID E PPV23 1 2022 33 complet ed HISTORICA L INFORMATI ON - FROM OTHER REGISTRY, [facility] INFLUENZA, SPLIT VIRUS, QUADRIVALENT, PF 2 2021 150 complet ed HISTORICA L INFORMATI ON - FROM OTHER REGISTRY, [facility] INFLUENZA, SPLIT VIRUS, QUADRIVALENT, PF 1 2020 150 complet ed HISTORICA L INFORMATI ON - FROM OTHER REGISTRY, [facility] N COVID-19 (MODERNA), MRNA, LNP-S, PF, 100 MCG/0.5ML DOSE OR 50 MCG/0.25ML DOSE 3 2020 207 complet ed HISTORICA L INFORMATI ON - FROM OTHER REGISTRY, [facility] COVID-19 (MODERNA), MRNA, LNP-S, PF, 100 MCG/0.5ML DOSE OR 50 MCG/0.25ML DOSE 2 2020 207 complet ed HISTORICA L INFORMATI ON - FROM OTHER REGISTRY, [facility] COVID-19 (MODERNA), MRNA, LNP-S, PF, 100 MCG/0.5ML DOSE OR 50 MCG/0.25ML DOSE 1 2020 207 complet ed HISTORICA L INFORMATI ON - FROM OTHER REGISTRY, [facility] Encounters Combined list of: 1) Encounters from Department of Veterans Affairs facilities going backup to the last 18 months, not all VA inpatient encounters are included; 2) Encounters from the Department of Defense facilities going backup to 280 months. Location Location Details Encounter Type Encounter Number Reason For Visit Attending Provider ADM Date DC Date Status Disposition Source [facility] Outpatient Encounter [id number] 10/02 [facility] Outpatient Encounter [id number] 05/15 [facility] Outpatient Encounter [id number] 08/12 [facility] Outpatient Encounter [id number] 09/18 [facility] Outpatient Encounter [id number] 10/28 [facility] Outpatient Encounter [id number] 10/29 [facility] Outpatient Encounter [id number] 11/07 [facility] OFF/OP EST JANUARY X REQ PHY/QHP [id number] Diagnos is: ICD-10- CM H61.23 Rubene hiram rolonRED,TO RRI J 11/13 [facility] Outpatient Encounter [id number] 11/26 [facility] TELEHEALTH FACILITY FEE [id number] Diagnos is: ICD-10- CM H90.3 Sensori neural hearing loss, PJ Marie A 11/27 [facility] HEARING AID REPAIR/MOD IFYING [id number] Diagnos is: ICD-10- CM H90.3 Sensori neural hearing loss, PJ Marie A 11/27 [place] [facility] Outpatient Encounter [id number] 12/02 [facility] Encounter [id number] 12/29 [facility] TELEHEALTH FACILITY FEE [id number] Diagnos is: ICD-10- CM Z46.1 Encount er for fitting and adjustm ent of hearing aid PJ BECERRA A 12/30 [facility] CONFORMITY EVALUATION [id number] Diagnos is: ICD-10- CM Z46.1 Encount er for fitting and adjustm ent of hearing aid PJ BECERRA A 12/30 [facility]
--- OUTSIDE RECORDS SUMMARY | 2025-04-22 13:16 | XMS_ITS | Encounter Summary ---
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
--- OUTSIDE RECORDS SUMMARY | 2025-04-22 13:16 | XMS_ITS | Encounter Summary ---
Author Organization [facility] Address [address] [place] [address] Care Team Providers Care Material Damage Adjuster Name Role Phone Tung Sadler DO Primary Care Provider [phone] Encounter Details Date Type Department Care Team (Late st Contact Info) Description 09/08/2008 Outpatient Historical [facility] PreAdmission [place] [id number] [place] [address] Lamonte Norman MD NO ADDRESS ON FILE Social History Tobacco Use Types Packs/Day Years Used Date Smoking Tobacco: Never Assessed Sex and Gender Information Value Date Recorded Sex Assigned at Not on file Legal Sex Male 6:21 AM DIE ASSEMBLER Gender Identity Not on file Sexual Orientation Not on file documented as of this encounter Plan of Treatment Not on file documented as of this encounter Visit Diagnoses Not on filedocumented in this encounter Care Teams Material Damage Adjuster Relationship Specialty Start Date End Date Tung Sadler DO [address] [place] [address] PCP - General 09/07/08 documented as of this encounter
--- OUTSIDE RECORDS SUMMARY | 2025-04-22 13:16 | XMS_ITS | Encounter Summary ---
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 Dx); Benign nancy skin leg; Other seborrheic keratosis Social History Tobacco Use Types Packs/Day Years Used Date Smoking Tobacco: Never Assessed Sex and Gender Information Value Date Recorded Sex Assigned at Not on file Legal Sex Male 6:21 AM JACQUARD LOOM CARD CHANGER Gender Identity Not on file Sexual Orientation Not on file documented as of this encounter Plan of Treatment Not on file documented as of this encounter Visit Diagnoses Diagnosis Other and unspecified malignant neoplasm of skin of other and unspecified parts of face- Primary Benign nancy skin leg Benign neoplasm of skin of lower limb, including hip Other seborrheic keratosis documented in this encounter Care Teams Diesel Lube Tech Relationship Specialty Start Date End Date Tung Sadler DO [address] [place] [address] PCP - General 09/07/08 documented as of this encounter
--- OUTSIDE RECORDS SUMMARY | 2025-04-22 13:16 | XMS_ITS | Encounter Summary ---
Author Organization [facility] Address [address] [place] [place] [address] Care Team Providers Care Switchboard Operator Supervisor Name Role Phone Tung Sadler DO Primary Care Provider [phone] Encounter Details Date Type Department Care Team (Latest Contact Info) Description 11/18/1998 Outpatient Historical [facility] Yobani Lares MD NO ADDRESS ON FILE Other and unspecified angina pectoris (Primary Dx); Coronary atherosclerosis of unspecified type of vessel, [place] or graft Social History Tobacco Use Types Packs/Day Years Used Date Smoking Tobacco: Never Assessed Sex and Gender Information Value Date Recorded Sex Assigned at Not on file 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
--- OUTSIDE RECORDS SUMMARY | 2025-04-22 13:16 | XMS_ITS | Clinical Summary ---
Author Organization [facility] Address [address] [place] [address] Care Team Providers Care Roof Cement And Paint Maker Helper Name Role Phone Tung Sadler DO Primary Care Provider [phone] Allergies Active Allergy Reactions Criticality Noted Date Comments Sulfa (Sulfonamide Antibiotics) Rash,Nausea and Vomiting Low 09/10/2008 Medications TOPROL XL 100 mg Oral Tb24 Take 100 mg by mouth daily. Active CRESTOR 40 mg Oral Tab Take 40 mg by mouth daily at bedtime. Active ASPIRIN 81 mg Oral Tab Take 81 mg by mouth daily. Active FISH OIL CONCENTRATE PO Take 1,000 mg by mouth 2 times daily. 2caps Active IBUPROFEN PO Take 200 mg by mouth every 4 hours as needed. Active OTHER Metamucil OTC 2 x daily per Active lisinopril-hydroc hlorothiazide (ZESTORETIC) 20-12.5 mg tablet 05/19/2014 A ctive Active Problems Problem Noted Date Diagnosed Date Retinal detachment with retinal defect, right ey e 06/16/2014 Abdominal pain, unspecified site 10/26/2008 Family History Medical History Relation Name Comments Cancer Father multiple myelom a Heart Disease Father Heart Disease Mother CHF Colon Cancer Neg Hx Relation Name Status Comments Father Mother Social History Tobacco Use Types Packs/Day Years Used Date Smoking Tobacco: Never Alcohol Use Standard Drinks/Week Comments No 0 (1 standard drink = 0.6 oz pur e alcohol) Sex and Gender Information Value Date Recorded Sex Assigned at Not on file Legal Sex Male 6:21 AM MATERIAL DAMAGE ADJUSTER Gender Identity Not on file Sexual Orientation Not on file Occupation Industry Job Start Date Job End Date Not on file Not on file Not on file Not on file Last Filed Vital Signs Vital Sign Reading Time Taken Comments Blood Pressure 156/77 08/05/2014 2:33 PM MATERIAL DAMAGE ADJUSTER Pulse 68 08/05/2014 1:33 PM MATERIAL DAMAGE ADJUSTER Temperature 36.4 C (97.6 F) 06/16/2014 5:20 PM CDT Respiratory Rate 18 06/16/2014 6:00 PM CDT Oxygen Saturation 98% 06/16/2014 6:00 PM CDT Inhaled Oxygen Concentration - - Weight 95.3 kg (210 lb) 08/05/2014 2:33 PM MATERIAL DAMAGE ADJUSTER Height 180.3 cm (5' 11 ) 08/05/2014 2:33 PM MATERIAL DAMAGE ADJUSTER Body Mass Index 29.29 08/05/2014 2:33 PM MATERIAL DAMAGE ADJUSTER Plan of Treatment Health Maintenance Due Date Last Done Comments DTAP/TDAP/TD VACCINES (1 - Tdap) 1962 PNEUMOCOCCAL VACCINE 50+ YEA RS (1 of 1 - PCV) 1993 ZOSTER VACCINE (1 of 2) 1993 RSV VACCINE (60+ or ) (1 - 1-dose 75+ series) 2018 INFLUENZA VACCINE (#1) 2025 COLORECTAL SCREENING Discontinued 11/12/2008, 10/26/19 09 Colorectal Cancer Screening Discontinued FIT-DNA Q 3 years Discontinued FIT/FOBT Q 1 year Discontinued Flex Sig/CT Colonography Q 5 years Discontinued Insurance MEDICARE PART [place] [id number] Advance Directives For more information, please contact: [phone] * Full Code (Latest Code Status on File) Date Activated Date Inactivated Comments 06/16/2014 3:07 PM 06/16/2014 9:47 PM * Full Code Date Activated Date Inactivated Comments 06/16/2014 2:32 PM 06/16/2014 3:07 PM * Full Code Date Activated Date Inactivated Comments 07/13/2009 3:17 PM 07/13/2009 9:47 PM * Full Code Date Activated Date Inactivated Comments 07/13/2009 11:34 AM 07/13/2009 3:17 PM * Full Code Date Activated Date Inactivated Comments 10/26/2008 12:52 PM 10/27/2008 2:02 AM Care Teams Roof Cement And Paint Maker Helper Relationship Specialty Start Date End Date Tung Sadler DO [address] [place] [address] PCP - General 09/07/08
--- OUTSIDE RECORDS SUMMARY | 2025-04-22 13:16 | XMS_ITS | Encounter Summary ---
Author Organization [facility] Address [address] [place] [address] Care Team Providers Care Shine Worker Name Role Phone Tung Sadler DO Primary Care Provider [phone] Encounter Details Date Type Department Care Team (Latest Contact Info) Description 08/08/2000 Outpatient Historical [facility] [address] [place] [address] Bala Finn MD NO ADDRESS ON FILE Inguinal hernia without mention of obstruction or gangrene, unilateral or unspecified, (not specified as recurrent) (Primary Dx); Follow-up examination following surgery Social History Tobacco Use Types Packs/Day Years Used Date Smoking Tobacco: Never Assessed Sex and Gender Information Value Date Recorded Sex Assigned at Not on file Legal Sex Male 6:21 AM 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
--- OUTSIDE RECORDS SUMMARY | 2025-04-22 13:16 | XMS_ITS | Encounter Summary ---
Author Organization [facility] Address [address] [place] [address] Care Team Providers Care Director Safety Council Name Role Phone Tung Sadler DO Primary Care Provider [phone] Encounter Details Date Type Department Care Team (Latest Contact Info) Description 06/07/2000 Outpatient Historical [facility] Cardiology- [place] [address] [place] [address] Yobani Lares MD NO ADDRESS ON FILE Coronary atherosclerosis of [place] coronary artery (Primary Dx); Mixed hyperlipidemia Social History Tobacco Use Types Packs/Day Years Used Date Smoking Tobacco: Never Assessed Sex and Gender Information Value Date Recorded Sex Assigned at Not on file Legal Sex Male 6:21 AM DIRECTOR OF PERIOPERATIVE SERVICES Gender Identity Not on file Sexual Orientation Not on file documented as of this encounter Plan of Treatment Not on file documented as of this encounter Visit Diagnoses Diagnosis Coronary atherosclerosis of [place] coronary artery- Primary Mixed hyperlipidemia documented in this encounter Care Teams Director Safety Council Relationship Specialty Start Date End Date Tung Sadler DO [address] [place] [address] PCP - General 09/07/08 documented as of this encounter
--- OUTSIDE RECORDS SUMMARY | 2025-04-22 13:16 | XMS_ITS | Encounter Summary ---
Author Organization [facility] Address [address] [place] [address] Care Team Providers Care General Studies Program Chair Name Role Phone Tung Sadler DO Primary Care Provider Encounter Details Date Type Department Care Team (Latest Contact Info) Description 01/13/1999 Outpatient Historical [facility] Cardiology- [place] [address] [place] [address] Yobani Lares MD NO ADDRESS ON FILE Other dyspnea and respiratory abnormality (Primary Dx) Social History Tobacco Use Types Packs/Day Years Used Date Smoking Tobacco: Never Assessed Sex and Gender Information Value Date Recorded Sex Assigned at Not on file Legal Sex Male 6:21 AM DOCUMENT CONTROL COORDINATOR Gender Identity Not on file Sexual Orientation Not on file documented as of this encounter Plan of Treatment Not on file documented as of this encounter Visit Diagnoses Diagnosis Other dyspnea and respiratory abnormality- Primary documented in this encounter Care Teams General Studies Program Chair Relationship Specialty Start Date End Date Tung Sadler DO [address] [place] [address] PCP - General 09/07/08 documented as of this encounter
--- OUTSIDE RECORDS SUMMARY | 2025-04-22 13:16 | XMS_ITS | Encounter Summary ---
Author Organization [facility] Address [address] [place] [address] Care Team Providers Care Flare Breaker Name Role Phone Tung Sadler DO Primary Care Provider [phone] Encounter Details Date Type Department Care Team (Latest Contact Info) Description 06/29/2000 Outpatient Historical [facility] [place] [facility] [address] [place] [address] Bala Finn MD NO ADDRESS ON FILE Inguinal hernia without mention of obstruction or gangrene, unilateral or unspecified, (not specified as recurrent) (Primary Dx) Social History Tobacco Use Types Packs/Day Years Used Date Smoking Tobacco: Never Assessed Sex and Gender Information Value Date Recorded Sex Assigned at Not on file Legal Sex Male 6:21 AM 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
--- OUTSIDE RECORDS SUMMARY | 2025-04-22 13:16 | XMS_ITS | Encounter Summary ---
Author Organization [facility] Address [address] [place] [address] Care Team Providers Care Clay Structure Builder And Servicer Name Role Phone Tung Sadler Primary Care Provider [phone] Encounter Details Date Type Department Care Team (Late st Contact Info) Description 09/08/2008 Outpatient Historical [facility] IN BED Lamonte Norman MD NO ADDRESS ON FILE Social History Tobacco Use Types Packs/Day Years Used Date Smoking Tobacco: Never Assessed Sex and Gender Information Value Date Recorded Sex Assigned at Not on file Legal Sex Male 6:21 AM LAW EXAMINER Gender Identity Not on file Sexual Orientation Not on file documented as of this encounter Plan of Treatment Not on file documented as of this encounter Procedures Procedure Name Priority Date/Time Associated Diagnosis Comments PATHOLOGY Routine 09/09/2008 10:39 AM LAW EXAMINER BASIC METABOLIC PANEL Stat 09/09/2008 8:07 AM LAW EXAMINER documented in this encounter Results * PATHOLOGY (09/09/2008 10:39 AM LAW EXAMINER) PATHOLOGY/CYT OLOGY REPORT [facility] Anatomic Pathology Dept [address] [facility] [place] [facility] [address] Patient: AJIT WYLIE Accn No: [id number] Collected: 09/09/2008 10:39:00 AM SURGICAL PATHOLOGY FINAL REPORT Diagnosis A. Appendix, excision - serosal adhesions and periappendiceal inflammation - no evidence of inflammation of the appendiceal mucosa or wall. Emre Enrique M.D. (Electronically signed by) Verified: 09/10/08 SEC/SEC Clinical Information Acute appendicitis. Specimen Source AAppendix Microscopic Description Microscopic examination was performed. Gross Description Part A. Submitted in a container of formalin labelled [place] - appendix is a reddish-chappell appendix with a small amount of attached fatty tissue measuring 5.8 cm in length and 1 cm in diameter. The mucosal resection margin has been stapled closed. On palpation, the wall of the appendix appears grossly intact, however, focal areas of the serosa appears sloughing. Sectioning reveals a large amount of translucent mucin. The lumen appears dilated. The wall of the appendix appears grossly intact. Tank Hoop Bender sections are submitted in A1-A4. DLS/WLS [facility] 09/09/2008 10:3 9 AM LAW EXAMINER us Lamonte Norman MD PATHOLOGY/CYTOLOGY ORDERAB LES Final Result INTERFACE SYSTEM Refer to clinic/hospital department [facility] CLIA# [id number] [address] [place] [address] * (ABNORMAL) BASIC METABOLIC PANEL (09/09/2008 8:07 AM LAW EXAMINER) POTASSIUM 4.0 3.5 - 5.0 mEq/L [facility] OSMOLALITY, CALCULATED 291 275 - 295 mOsm/Kg [facility] CREATININE 0.9 0.7 - 1.5 mg/dL [facility] CALCIUM 9.6 8.4 - 10.5 mg/dL [facility] GLUCOSE 111(H) 70 - 110 mg/dL [facility] CHLORIDE 104 95 - 110 mEq/L [facility] ANION GAP 10 9 - 20 mEq/L [facility] SODIUM 141 136 - 145 mEq/L [facility] BUN 13 9 - 20 mg/dL [facility] CO2 31 22 - 32 mmol/l [facility] Blood specimen (specimen) 09/09/2008 8:07 AM LAW EXAMINER 09/09/2008 8:10 AM LAW EXAMINER Narrative INTERFACE SYSTEM - 09/09/2008 8:35 AM LAW EXAMINER hold tubes us Lamonte Norman MD CHEMISTRY ORDERABLES Final Result INTERFACE SYSTEM Refer to clinic/hospital department [facility] CLIA# [id number] [address] [place] [address] documented in this encounter Visit Diagnoses Not on filedocumented in this encounter Care Teams Clay Structure Builder And Servicer Relationship Specialty Start Date End Date Tung Sadler DO [address] [place] [address] PCP - General 09/07/08 documented as of this encounter
--- OUTSIDE RECORDS SUMMARY | 2025-04-22 13:16 | XMS_ITS | Encounter Summary ---
Author Organization [facility] Address [address] [facility] Attn: Epic Prelude ADT [place] [address] Care Team Providers Care Secondary School Teacher Name Role Phone Tung Sadler DO Primary Care Provider [phone] Encounter Details Date Type Department Care Team (Late st Contact Info) Description 07/10/2000 Outpatient Historical Bala Finn MD NO ADDRESS ON FILE Social History Tobacco Use Types Packs/Day Years Used Date Smoking Tobacco: Never Assessed Sex and Gender Information Value Date Recorded Sex Assigned at Not on file Legal Sex Male 6:21 AM SVP Gender Identity Not on file Sexual Orientation Not on file documented as of this encounter Plan of Treatment Not on file documented as of this encounter Visit Diagnoses Not on filedocumented in this encounter Care Teams Secondary School Teacher Relationship Specialty Start Date End Date Tung Sadler DO [address] [place] [address] PCP - General 09/07/08 documented as of this encounter
--- OUTSIDE RECORDS SUMMARY | 2025-04-22 13:16 | XMS_ITS | Encounter Summary ---
Author Organization [facility] Address [address] [place] [address] Care Team Providers Care Floral Associate Name Role Phone Tung Sadler DO Primary Care Provider [phone] Encounter Details Date Type Department Care Team (Latest Contact Info) Description 08/11/2003 Outpatient Historical [facility] [address] [place] [phone] Virgilio Mcdaniel MD NO ADDRESS ON FILE Inflamed seborr keratos (Primary Dx); SEBORRHEIC KERATOSIS NOS; Benign nancy skin leg Social History Tobacco Use Types Packs/Day Years Used Date Smoking Tobacco: Never Assessed Sex and Gender Information Value Date Recorded Sex Assigned at Not on file Legal Sex Male 6:21 AM HOSPICE CLINICAL MARKETER Gender Identity Not on file Sexual Orientation Not on file documented as of this encounter Plan of Treatment Not on file documented as of this encounter Visit Diagnoses Diagnosis Inflamed seborr keratos- Primary Inflamed seborrheic keratosis Other seborrheic keratosis Benign nancy skin leg Benign neoplasm of skin of lower limb, including hip documented in this encounter Care Teams Floral Associate Relationship Specialty Start Date End Date Tung Sadler DO [address] [place] [address] PCP - General 09/07/08 documented as of this encounter
--- OUTSIDE RECORDS SUMMARY | 2025-04-22 13:16 | XMS_ITS | Encounter Summary ---
Author Organization [facility] Address [address] [place] [address] Care Team Providers Care Senior Java Programmer Name Role Phone Tung Sadler DO Primary Care Provider [phone] Encounter Details Date Type Department Care Team (Latest Contact Info) Description 12/16/1998 Outpatient Historical [facility] Cardiac Thoracic Vascular Surg [place] [address] [place] [address] Brent Porras MD NO ADDRESS ON FILE Coronary atherosclerosis of ki[place] coronary artery (Primary Dx) Social History Tobacco Use Types Packs/Day Years Used Date Smoking Tobacco: Never Assessed Sex and Gender Information Value Date Recorded Sex Assigned at Not on file 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
--- OUTSIDE RECORDS SUMMARY | 2025-04-22 13:16 | XMS_ITS | Encounter Summary ---
Author Organization [facility] Address [address] [place] [address] Care Team Providers Care Short Story Writer Name Role Phone Tung Sadler DO Primary Care Provider [phone] Encounter Details Date Type Department Care Team (Latest Contact Info) Description 02/28/2005 Outpatient Historical [facility] Dermatology- [facility] [place] [address] [place] [address] Virgilio Mcdaniel MD NO ADDRESS ON FILE Inflamed seborr keratos (Primary Dx); SEBORRHEIC KERATOSIS NOS; Benign nancy skin leg Social History Tobacco Use Types Packs/Day Years Used Date Smoking Tobacco: Never Assessed Sex and Gender Information Value Date Recorded Sex Assigned at Not on file 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
--- OUTSIDE RECORDS SUMMARY | 2025-04-22 13:16 | XMS_ITS | Encounter Summary ---
Author Organization [facility] Address [address] [place] [address] Care Team Providers Care Visual Education Director Name Role Phone Tung Sadler DO Primary Care Provider [phone] Encounter Details Date Type Department Care Team (Late st Contact Info) Description 09/07/2008 Outpatient Historical [facility] [address] 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 Gender Identity Not on file Sexual Orientation Not on file documented as of this encounter Plan of Treatment Not on file documented as of this encounter Procedures Procedure Name Priority Date/Time Associated Diagnosis Comments CT ABDOMEN PELVIS W CONTRAST Routine 09/08/2008 2:31 PM GEMOLOGIST POC CREATININE Routine 09/08/2008 1:47 PM GEMOLOGIST CBC WITH DIFFERENTIAL Stat 09/08/2008 1:35 PM GEMOLOGIST documented in this encounter Results * CT ABDOMEN PELVIS W CONTRAST (09/08/2008 2:31 PM GEMOLOGIST) Anatomical Region Laterality Modality Abdomen Other 09/08/2008 2:31 PM GEMOLOGIST Narrative 09/15/2008 6:14 PM GEMOLOGIST Exam: CT Abdomen, Pelvis, w/contrast Date/Time of Exam: Sep 08, 2008 2:31:32 PM History: RLQ pain. Technique: CT of the abdomen and pelvis was performed after the administration of intravenous contrast. Contrast administered was: 100 mL Optiray-240, oral and rectal contrast. Findings: Comparison is made with the report from prior CT from [place], [place]. There are hepatic cysts and several indeterminate subcentimeter hepatic hypodensities. The gallbladder, spleen, pancreas and left adrenal gland are unremarkable. Indeterminate 2 cm right adrenal nodule. Both adrenal glands are normal. The right kidney is unremarkable. Left renal cortical cysts are present. Abnormal appearance of the appendix with enlargement, wall thickening and periappendiceal fat infiltration. No free air or abscess. Prostatomegaly. The urinary bladder is unremarkable. Moderate left and small right fat containing inguinal hernias. Streaky areas of bilateral pulmonary basilar scar versus atelectasis. Left lower lobe nodule measuring 9 mm on image 15. Prior median sternotomy. Degenerate changes are present in the spine. Impression: Findings consistent with acute appendicitis. No abscess or free air. 2 cm right adrenal nodule and subcentimeter hepatic lesions, indeterminate by criteria. 9 mm left lower lobe nodule; a 3 month follow-up recommended for surveillance in absence of older exams. - Dictated By: Manuel Zapata M.D. Electronically Signed By: Manuel Zapata M.D. Date Signed: 09/09/08 [facility] Addendum: A prior CT scan from [place], [place], [facility] dated 09/04/2008 has become available for comparison. Compared to the prior exam, current abnormal features on CT of 09/08/2008 are not significantly changed. - Dictated By: Manuel Zapata M.D. Electronically Signed By: Manuel Zapata M.D. Date Signed: 09/15/08 Procedure Note Manuel Zapata MD - 09/15/2008 Exam: CT Abdomen, Pelvis, w/contrast Date/Time of Exam: Sep 08, 2008 2:31:32 PM History: RLQ pain. Technique: CT of the abdomen and pelvis was performed after theadministration of intravenous contrast. Contrast administered was: 100 mL Optiray-240, oral and rectal contrast. Findings: Comparison is made with the report from prior CT from [place], [place]. There are hepatic cysts and several indeterminate subcentimeter hepatic hypodensities. Thegallbladder, spleen, pancreas and left adrenal gland are unremarkable. Indeterminate 2 cm right adrenalnodule. Both adrenal glands are normal. The right kidney is unremarkable. Left renal cortical cysts arepresent. Abnormal appearance of the appendix with enlargement, wall thickening and periappendiceal fatinfiltration. No free air or abscess. Prostatomegaly. The urinary bladder is unremarkable. Moderateleft and small right fat containing inguinal hernias. Streaky areas of bilateral pulmonary basilarscar versus atelectasis. Left lower lobe nodule measuring 9 mm on image 15. Prior median sternotomy.Degenerate changes are present in the spine. Impression: Findings consistent with acute appendicitis. No abscess orfree air. 2 cm right adrenal nodule and subcentimeter hepatic lesions, indeterminate by criteria. 9 mmleft lower lobe nodule; a 3 month follow-up recommended for surveillance in absence of older exams. - Dictated By: Manuel Zapata M.D. Electronically Signed By: Manuel Zapata M.D. Date Signed: 09/09/08 [facility] Addendum: A prior CT scan from [place], [place], [facility] dated 09/04/2008 has become available for comparison. Compared to the prior exam, current abnormalfeatures on CT of 09/08/2008 are not significantly changed. - Dictated By: Manuel Zapata M.D. Electronically Signed By: Manuel Zapata M.D. Date Signed: 09/15/[address] ORDERABLES Edited * POC CREATININE (09/08/2008 1:47 PM GEMOLOGIST) CREATININE POC 1.0 0.7 - 1.5 mg/dL [facility] Capillary blood specimen (specimen) 09/08/2008 1:47 PM GEMOLOGIST 09/08/2008 7:22 PM GEMOLOGIST us Lamonte Norman MD POINT OF CARE TESTING Darcy l Result INTERFACE SYSTEM Refer to clinic/hospital department [facility] CLIA# [id number] [address] [place] [address] * (ABNORMAL) CBC WITH DIFFERENTIAL (09/08/2008 1:35 PM GEMOLOGIST) WBC 8.0 4.8 - 10.8 K/ul [facility] NEUTROPHILS 71.8 42.2 - 75.2 % [facility] MCH 27.7 27.0 - 34.0 pg [facility] NEUTROPHIL ABSOLUTE 5.8 2.0 - 8.0 K/ul [facility] HEMATOCRIT 43.2 41.0 - 53.0 % [facility] PLATELETS 181 140 - 440 K/ul [facility] EOSINOPHIL ABSOLUTE 0.1 0.0 - 0.7 K/ul [facility] EOSINOPHILS 1.6 0.0 - 7.0 % [facility] RBC 5.19 4.60 - 6.20 Mil/ul [facility] MCHC 33.3 30.0 - 35.0 g/dL [facility] LYMPHOCYTE ABSOLUTE 1.5 1.2 - 4.0 K/ul [facility] LYMPHOCYTES 18.4(L) 24.0 - 44.0 % [facility] MCV 83.2(L) 84.0 - 103.0 Fl [facility] BASOPHILS 0.2 0.0 - 1.0 % [facility] MPV 10.7 8.9 - 12.8 Fl [facility] BASOPHILS ABSOLUTE 0.0 0.0 - 0.2 K/ul [facility] HEMOGLOBIN 14.4 14.0 - 18.0 g/dL [facility] MONOCYTES 8.0 2.0 - 10.0 % [facility] RDW 14.4 11.0 - 14.5 % [facility] MONOCYTE ABSOLUTE 0.6 0.1 - 0.6 K/ul [facility] Blood specimen (specimen) 09/08/2008 1:35 PM GEMOLOGIST 09/08/2008 6:49 PM GEMOLOGIST us Lamonte Norman MD HEMATOLOGY ORDERABLES Darcy ricci Result INTERFACE SYSTEM Refer to clinic/hospital department [facility] CLIA# [id number] [address] [place] [address] documented in this encounter Visit Diagnoses Diagnosis Abdominal pain Abdominal pain, unspecified site documented in this encounter Care Teams Visual Education Director Relationship Specialty Start Date End Date Tung Sadler DO [address] [place] [address] PCP - General 09/07/08 documented as of this encounter
--- OUTSIDE RECORDS SUMMARY | 2025-04-22 13:16 | XMS_ITS | Encounter Summary ---
Author Organization [facility] Address [address] [place] [address] Care Team Providers Care Senior Digital Designer Name Role Phone Tung Sadler DO Primary Care Provider [phone] Encounter Details Date Type Department Care Team (Latest Contact Info) Description 01/13/1999 Outpatient Historical [facility] Cardiac Thoracic Vascular Surg [place] [address] [place] [address] Coronary atherosclerosis of [place] coronary artery (Primary Dx); Unspecified pleural effusion Social History Tobacco Use Types Packs/Day Years Used Date Smoking Tobacco: Never Assessed Sex and Gender Information Value Date Recorded Sex Assigned at Not on file 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
--- OUTSIDE RECORDS SUMMARY | 2025-04-22 13:16 | XMS_ITS | Clinical Summary ---
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
--- OUTSIDE RECORDS SUMMARY | 2025-04-22 13:17 | XMS_ITS | Patient Health Record ---
Author Organization [facility], [facility] Address [address] [place] [address] Care Team Providers Care Sharepoint Net Developer Name Role Phone Alex Craig Primary Care Provider OLVIN Carlisle Unavailable [phone] Dorcas Rodriguez Unavailable Unavailable CINDY BAÑUELOS Unavailable [phone] Allergies Allergen (clinical drug ingredient) Drug/Non Drug Allergy documented on EMR Reaction Allergy Type Onset Date Status Substance with sulfonamide structure and antibacterial mechanism of action (substance) Sulfa Antibiotics Unknown Drug Allergy Active Results Component Value Reference Range Notes Order Activation Reviewed date:03/20/2025 07:59:56 AM Interpretation: Performing Lab: Notes/Report: Order Activation Complete Testing per formed at: [address] [place] [address] CLIA ID [id number] PSA-Diagnostic Reviewed date:03/20/2025 07:59:56 AM Interpretation: Performing Lab: Notes/Report: PSA 2.37 .00-4.00 NG/ML PSA concentrations, regardless of the value, should not be interpreted as definitive evidence for the presence or absence of prostate cancer. Testing performed at: [address] [place] [address] CLIA ID [id number] Reason For Referral No Information Medications Medication SIG (Take, Route, Frequency, Duration) Notes Start Date End Date Status Tamsulosin HCl 0.4 MG 1 capsule Orally O nce a day; Duration: 90 days 09/23/2024 09/18/2025 Active Fish Oil 1200 MG 1 capsule Orally Onc e a day Active diazePAM 5 MG 1 tablet as needed Orally twice a day Active Lisinopril-hydroCHLOROthia zide 20-12.5 MG 1 tablet Orally twice a day Active Finasteride 5 MG 1 tablet Orally Once a day Active Toprol XL 100 MG 1 tablet Orally Once a day Active Zetia 10 MG 1 tablet Orally Once a day Active Crestor 40 MG 1 tablet Orally Once a day Active Aspirin 81 MG 1 tablet Orally Once a day Active Lasix 40 MG 1 tablet Orally twic e a day Active traZODone HCl 50 MG 1 tablet at bedtime as needed Orally Once a day Active PreserVision AREDS - 1 capsule Orally tw ice a day Active Potassium Chloride ER 10 MEQ 1 tablet with food Orally Twice a day Active Social History Tobacco Use: Social History Observation Description Date Details (start date - stop date) Never Smoker NA - NA Tobacco Control (Standard) Question Answer Notes Tobacco use: Nonsmoker AUDIT-C (Standard) Question Answer Notes Did you have a drink containing alcohol in the p ast year? No Points 0 Interpretation Negative Problems Problem Type SNOMED Code ICD Code Onset Dates Problem Status W/U Status Risk Notes Problem Lower urinary tract symptoms due to benign prostatic hypertrophy (73095479718004) Benign prostatic hyperplasia with lower urinary tract symptoms (N40.1) Active confirmed Vital Signs Heart Rate 51 /min 03/31/2025 Height-cm 182.88 cm 03/31/2025 Blood pressure diastolic 54 mm Hg 03/31/2025 Weight-kg 86.18 kg 03/31/2025 Height 72 in 03/31/2025 Blood pressure systolic 111 mm Hg 03/31/2025 Weight 190 lbs 03/31/2025 BMI 25.77 kg/m2 03/31/2025 Procedures Procedure Date Ordered Date Performed Result Body Sit e UroFlow 09/23/2024 N/A Bladder Scan 09/23/2024 09/23/2024 17 ml UroFlow 03/31/2025 N/A Bladder Scan 03/31/2025 03/31/2025 pvr 24 mL Encounters Encounter Location Date Provider Diagnosis [facility], [facility] [address] [place] [address] 09/23/2024 OLVIN VALENTE Urinary frequency R35.0 ; Elevated PSA R97.20 and Benign prostatic hyperplasia with lower urinary tract symptoms N40.1 [facility], [facility] [address] [place] [address] 03/31/2025 CINDY BAÑUELOS Benign prostatic hyperplasia with lower urinary tract symptoms N40.1 ; Urinary frequency R35.0 and Elevated PSA R97.20 [facility], [facility] [address] [place] [address] 06/02/2024 OLVIN VALENTE Elevated PSA R97.20 [facility], [facility] [address] [place] [address] 02/18/2025 OLVIN VALENTE Elevated PSA R97.20 Assessments Encounter Date Diagnosis (ICD Code) Assessment Notes Treatment Notes Treatment Clinical Notes Section Notes 06/02/2024 Elevated PSA (ICD-10 - R97.20) 09/23/2024 Urinary frequency (ICD-10 - R35.0) Patient has a persistently elevated PSA but given his age defers further workup at this point. We will provide close surveillance and possible MRI with continued rise but I suspect it will drop more after taking finasteride. He has been offered biopsy and further workup but understands the questionable benefit of PSA screening over 75 years of age. He has stopped Flomax which we will restart for him and return in 6 months with reassessment and noninvasive urodynamics and repeat PSA. We will need to continue to manage, evaluate, and re-assess treatment plan to meet therapy goals of this patient's multiple urologic concerns. 02/18/2025 Elevated PSA (ICD-10 - R97.20) 03/31/2025 Benign prostatic hyperplasia with lower urinary tract symptoms (ICD-10 - N40.1) Pt doing well without bothersome LUTS on MMM with flomax and finasteride. He has good noninvasive urodynamics and emptying. Will continue. 03/31/2025 Elevated PSA (ICD-10 - R97.20) Pt doing well with not only stable, but decrease in PSA down to 4.7 when corrected. Will continue q6m surveillance. He has declined work up with MRI and biopsy in the past due to age but would like continued close surveillance. RTC in 6m with PSA. 03/31/2025 Urinary frequency (ICD-10 - R35.0) 09/23/2024 Elevated PSA (ICD-10 - R97.20) PSA of 3.66 on 05/15/24 corrected to 7.32 on finasteride He will return in 6m with PSA. Return sooner with any concerns Patient has a persistently elevated PSA but given his age defers further workup at this point. We will provide close surveillance and possible MRI with continued rise but I suspect it will drop more after taking finasteride. He has been offered biopsy and further workup but understands the questionable benefit of PSA screening over 75 years of age. He has stopped Flomax which we will restart for him and return in 6 months with reassessment and noninvasive urodynamics and repeat PSA. We will need to continue to manage, evaluate, and re-assess treatment plan to meet therapy goals of this patient's multiple urologic concerns. 09/23/2024 Benign prostatic hyperplasia with lower urinary tract symptoms (ICD-10 - N40.1) I recommend continuing Flomax with Finasteride for MMM. Patient agrees to plan of care and Rx sent today. He will return in 6m with Fr/PVR. Return sooner with any concerns Patient has a persistently elevated PSA but given his age defers further workup at this point. We will provide close surveillance and possible MRI with continued rise but I suspect it will drop more after taking finasteride. He has been offered biopsy and further workup but understands the questionable benefit of PSA screening over 75 years of age. He has stopped Flomax which we will restart for him and return in 6 months with reassessment and noninvasive urodynamics and repeat PSA. We will need to continue to manage, evaluate, and re-assess treatment plan to meet therapy goals of this patient's multiple urologic concerns. 09/23/2024 Other IJudy Scribe, am scribing for, and in the presence of, Dr. Valente. I, Dr. Olvin Vlaente, personally performed the services prescribed in this documentation, as scribed by Judy Mckenna, in my presence, and it is both accurate and complete. Patient has a persistently elevated PSA but given his age defers further workup at this point. We will provide close surveillance and possible MRI with continued rise but I suspect it will drop more after taking finasteride. He has been offered biopsy and further workup but understands the questionable benefit of PSA screening over 75 years of age. He has stopped Flomax which we will restart for him and return in 6 months with reassessment and noninvasive urodynamics and repeat PSA. We will need to continue to manage, evaluate, and re-assess treatment plan to meet therapy goals of this patient's multiple urologic concerns. Plan Of Treatment Pending Test Test Name Order Date UroFlow 09/23/2024 UroFlow 03/31/2025 PSA-Diagnostic 06/02/2024 PSA-Diagnostic 02/18/2025 Next Appt Details Provider Name:CINDY FLEMING ALLAN, 09/29/2025 11:20:00 AM, [address] [place], [address], Insurance Providers Payer Name Payer Address Payer Phone Subscriber Number Group Number Insured Name Patient Relationship to Insured Coverage Start Date Coverage End Date [place] [address] DORIAN ELIZALDE [id number] Whitesid eKemar Self - patient is the insured [facility] Insurance [address] [address] MICHELLE LI [id number] Whitesid eKemar Self - patient is the insured Medical (General) History Medical History History ICD Code Elevated PSA hypercholesterolemia hypertension coronary artery disease Urinary frequency, Urgency, Intermittenc y, weak stream Surgical History Surgery Date(Month/Year) parathyroidectomy 08/1993 CABG x 3 11/1998 Hemorrhoidectomy 08/1999 Right inguinal hernia repair 07/2000 Detached retina 04/2007 Bilateral cataract 08/2008 Appendectomy 09/2008 Foot surgery 04/2014 Detached retina 06/2014 Left inguinal hernia 04/2023 Hospitalization History Reason Date(Month/Year) see prior sx hx
[2025-04-22 13:24] VITALS: BP 122/66; PULSE 51; RESP 16; O2SAT 97
--- NOTE | 2025-04-22 13:24 | ECG_ITS ---
[facility] Test Date: 2025-04-22 Pat Name: Kemar Abel Department: Room: Gender: Male Mail Handler: : 1945 Requested By: Dilma Antony Order Number: [id number] Watson MD: Fabrice Ruiz M.D. Measurements Intervals Jerome Rate: 47 P: 89 IN: 192 QRS: -8 QRSD: 129 T: 28 QT: 464 QTc: 413 Interpretive Statements SINUS BRADYCARDIA POSSIBLE LATERAL MYOCARDIAL INFARCTION , PROBABLY OLD [30 ms Q WAVE IN I/aVL/V5/V6] Compared to ECG 04/23/2023 11:58:28 Myocardial infarct finding now present Intraventricular conduction delay no longer present Electronically Signed On 04-25-2025 09:44:29 CDT by Fabrice Ruiz M.D. [email or web address]
--- NOTE | 2025-04-22 16:22 | W.ED.WOUNDLC ---
HPI - Wound/Laceration General: Chief Complaint: Wound/Laceration Stated Complaint: right arm cow kick Time Seen by Provider: 04/22/25 16:11 History of Present Illness: Patient is an 80-year-old gentleman that was out with his callus, and when a scalpel kicked him in his right extensor surface of lower right arm, pulling some of the muscle off of that, and partially degloving. He admits to landing on his back without hitting his head, and is not on blood thinners. He denies any head or neck pain or back pain. He only complains of right arm pain Associated symptoms: Denies chills, fever(s), nausea or vomiting Related Data Home Medications ?Medication ?Instructions ?Recorded ?Confirmed aspirin 81 mg tablet,delayed 81 mg PO DAILY 02/05/20 10/22/24 release (Adult Low Dose Aspirin) omega 3-cpo-knu-fish oil 1,200 mg 1 cap PO DAILY 08/18/21 10/22/24 (144 mg-216 mg) capsule (Fish Oil) vitamin A-vit C-vit E-zinc-Cu 2 tab PO BID 08/18/21 10/22/24 tablet Previous Rx's ?Medication ?Instructions ?Recorded docusate sodium 100 mg capsule 100 mg PO BID #14 caps 04/23/23 (DOK) ketoconazole 2 % topical cream 1 applic topical BID #60 grams 12/13/23 diazepam 5 mg tablet (Valium) 5 mg PO BID PRN anxiety #60 tabs 05/15/24 ezetimibe 10 mg tablet See Rx Instructions .Route 05/15/24 .COMPLEX #90 tabs finasteride 5 mg tablet (Proscar) 5 mg PO DAILY #90 tabs 05/15/24 furosemide 40 mg tablet 40 mg PO BID #180 tabs 05/15/24 lisinopril 20 See Rx Instructions .Route 05/15/24 mg-hydrochlorothiazide 12.5 mg .COMPLEX #180 tabs tablet metoprolol succinate 100 mg See Rx Instructions .Route 05/15/24 tablet,extended release 24 hr .COMPLEX #90 tabs potassium chloride 10 mEq See Rx Instructions .Route 05/15/24 capsule,extended release .COMPLEX #90 caps rosuvastatin 40 mg tablet See Rx Instructions .Route 05/15/24 .COMPLEX #90 tabs trazodone 100 mg tablet See Rx Instructions .Route 05/15/24 .COMPLEX #90 tabs cephalexin 500 mg capsule 500 mg PO BID 10 days #20 caps 04/22/25 methocarbamol 500 mg tablet 500 mg PO Q8H PRN muscle spasm #30 04/22/25 tabs Allergies Allergy/AdvReac Type Severity Reaction Status Date / Time Sulfa (Sulfonamide Allergy Severe Unconscious Verified 10/22/24 17:12 Antibiotics) Review of Systems General: Reports: 10 or more systems reviewed and unremarkable except in HPI and below Const: Denies: fever(s), chills or malaise Eyes: Denies: change in vision or blurry vision ENMT: Denies: throat pain or mouth pain Card: Denies: chest pain or palpitations Resp: Denies: dyspnea, productive cough or non-productive cough GI: Denies: abdominal pain, nausea or vomiting : Denies: flank pain or difficulty urinating Musc: Reports: extremity pain and other (large laceration mid distal arm with flap of muscle); Denies: neck pain, back pain, extremity swelling, joint pain, joint swelling, joint redness or joint warmth Skin/Breast: Reports: skin tenderness, skin swelling and other (large laceration) Neuro: Reports: numbness in extremities; Denies: headache(s) or weakness in extremities Psych: Denies: anxiety or depression [facility] PFSH: Medical History (Updated 04/22/25 @ 17:57 by DORIAN Carbajal) Hypertension Hyperlipidemia Gastroesophageal reflux disease Surgical History H/O left inguinal hernia repair History of colonoscopy Social History Smoking and tobacco/nicotine status: never used tobacco/nicotine Second hand smoke exposure: No Alcohol intake: never Substance/Drug Use: never Caregiver/support person: No Lives independently: Yes Household members: spouse Marital status: service: No Current occupational status: retired Current occupation: [employer] Current gender identity: Male Special solitario needs: No Physical Exam Const: COMMON NORMALS: no acute distress, average body habitus, patient oriented x3 and healthy appearing EXAM LIMITATIONS: no altered mental status GENERAL APPEARANCE: cooperative and well kempt HENMT: COMMON NORMALS: normocephalic, atraumatic and hearing grossly normal bilaterally HEAD & SCALP: normocephalic and atraumatic Eye: COMMON NORMALS: Equal, round and reactive pupils present and EOMs intact bilaterally PUPIL: Yes Equal, round and reactive pupils present Neck/C-Spine: COMMON NORMALS: full ROM, no lymphadenopathy and supple Lymph: LYMPHATIC: no lymphadenopathy noted Chest: COMMONS NORMALS: normal inspection of the chest and normal palpation of entire chest wall Resp: COMMON NORMALS: normal respiratory effort, No retractions and clear to auscultation bilaterally AUSCULTATION: clear to auscultation bilaterally Cardio: COMMON NORMALS: regular rate and regular rhythm RATE: regular rate RHYTHM: regular rhythm GI: COMMON NORMALS: Normal to inspection, nondistended, normoactive bowel sounds present and Soft to palpation PALPATION: Yes Soft to palpation : COMMON NORMALS: Yes no CVA tenderness BLADDER/KIDNEY EXAM: Yes no CVA tenderness Back/Pelvis: COMMON NORMALS: no CVA tenderness Extremity: RIGHT UPPER EXTREMITY: Yes upper arm Right upper arm: Yes inspection (large flap of partial missing muscle) EXTREMITY IMAGE (FRONT):  1. superficial abrasions EXTREMITY IMAGE (BACK):  1. muscle flap 2. superficial laceration 3. missing skin and muscle Neuro: SELINA COMA SCALE: document GCS findings COMMON NORMALS: patient oriented x3 and CN's II-XII intact bilaterally Psych: APPEARANCE: Yes well kempt Skin: NARRATIVE SKIN EXAM: See laceration report/extremity report Laceration, large, proximal lower arm extensor surface: 10 cm, flap, muscle missing, degloved, epidermis missing: Inferior laceration repair and secondary intent Distal right extensor arm with superficial laceration: Wound care Left dorsum of hand: Wound care Procedures Laceration Laceration 1: Site: upper extremity Side (If applicable): right Size (cm): 10 Description: flap, irregular and contaminated Depth: involves muscle layer Local Anesthetic: lidocaine 1% and with epi Amount of anesthesia used (mL): 7 Pre-repair: wound explored and irrigated extensively Skin layer closed with: nylon Size (cm): 4-0 Number of sutures: 6 Technique: simple, interrupted Course Reevaluation(s): Reevaluation #1: No pain after hydrocodone Vital Signs: Vital signs: Vital Signs Pulse Rate 51 L 04/22/25 13:24 Respiratory Rate 16 04/22/25 13:24 Blood Pressure 122/66 04/22/25 13:24 Pulse Oximetry 97 04/22/25 13:24 Oxygen Delivery Me thod Room Air 04/22/25 13:24 MDM - Wound/Laceration Medical Decision Making Patient had large laceration to right extensor surface forearm with muscle missing and flap. This was contaminated was irrigated extensively with over 1000 mL of sterile water and Hibiclens. Betadine was then added and 6 sutures placed along the horizontal border. Part of the muscle was missing in the superior portion, and could not be sewed with high risk for dehiscence. Patient will follow-up with wound care and have ongoing antibiotic care, wound care for secondary intention to this area. Different areas were considered as well as horizontal mattress sutures however given the skin pull, there was no way to place this back in order since the epidermis is missing, and the portion of the skin that is attached had a skin tear degloving area that needed to be removed and could not be placed back on due to the epidermis moving to the other section. All of this was discussed with the patient. He will follow-up with wound care and await call. He will take antibiotics as prescribed Medical Records I reviewed the patient's medical records. Lab Data Radiology Impressions Forearm X-Ray 04/22/25 16:24 IMPRESSION: 1. No acute fracture. 2. Subcutaneous gas overlying the radial aspect of the proximal forearm with presumed overlying laceration. XR interpretation done by ED provider, pending radiology final review ED provider radiology interpretation(s): no acute fracute, soft tissue open Discharge Plan Discharge Patient Disposition: Home Clinical Impression: Laceration, Skin tear, Muscle tear Condition: Stable Prescriptions: New methocarbamol 500 mg tablet 500 mg PO Q8H PRN (Reason: muscle spasm) Qty: 30 0RF cephalexin 500 mg capsule 500 mg PO BID 10 Days Qty: 20 0RF No Action aspirin [Adult Low Dose Aspirin] 81 mg tablet,delayed release (DR/EC) 81 mg PO DAILY vitamin A-vit C-vit E-zinc-Cu Tablet 2 tab PO BID omega 4-bhh-ghl-fish oil [Fish Oil] 1,200 (144-216) mg capsule 1 cap PO DAILY ketoconazole 2 % cream 1 applic topical BID Qty: 60 2RF ezetimibe 10 mg tablet See Rx Instructions .ROUTE .COMPLEX Qty: 90 1RF Dose Instruction: TAKE ONE TABLET BY MOUTH DAILY Rx Instructions: TAKE ONE TABLET BY MOUTH DAILY diazepam [Valium] 5 mg tablet 5 mg PO BID PRN (Reason: anxiety) Qty: 60 0RF finasteride [Proscar] 5 mg tablet 5 mg PO DAILY Qty: 90 2RF furosemide 40 mg tablet 40 mg PO BID Qty: 180 1RF Rx Instructions: AM AND 2PM lisinopril-hydrochlorothiazide 20-12.5 mg tablet See Rx Instructions .ROUTE .COMPLEX Qty: 180 1RF Dose Instruction: TAKE ONE TABLET BY MOUTH TWICE DAILY Rx Instructions: TAKE ONE TABLET BY MOUTH TWICE DAILY metoprolol succinate 100 mg tablet extended release 24 hr See Rx Instructions .ROUTE .COMPLEX Qty: 90 1RF Dose Instruction: TAKE ONE TABLET BY MOUTH EVERY DAY. Rx Instructions: TAKE ONE TABLET BY MOUTH EVERY DAY. potassium chloride 10 mEq capsule, extended release See Rx Instructions .ROUTE .COMPLEX Qty: 90 1RF Dose Instruction: TAKE ONE CAPSULE BY MOUTH DAILY Rx Instructions: TAKE ONE CAPSULE BY MOUTH DAILY rosuvastatin 40 mg tablet See Rx Instructions .ROUTE .COMPLEX Qty: 90 4RF Dose Instruction: TAKE ONE TABLET BY MOUTH EVERY DAY Rx Instructions: TAKE ONE TABLET BY MOUTH EVERY DAY trazodone 100 mg tablet See Rx Instructions .ROUTE .COMPLEX Qty: 90 1RF Dose Instruction: TAKE ONE TABLET BY MOUTH DAILY Rx Instructions: TAKE ONE TABLET BY MOUTH DAILY DOK 100 mg capsule 100 mg PO BID Qty: 14 0RF Discharge Orders: Discharge ED (Routine); Ordered 04/22/25 Ordered By: Dilma Antony Referrals: Danny Myles MD [Physician, Wound Care] Dorcas Rodriguez MD [Primary Care Provider, Family Practice] Discharge Diet: Usual diet Discharge Activity: Limit activity as instructed Patient Instructions: Laceration (ED), Opioid Safety, Pain Management, Patient Portal & Annette Instructions Activity Restrictions/Additional Instructions: You have a complicated skin tear on your right forearm. You will need to follow-up with wound care and take antibiotics as directed. This wound was partially sutured since you are missing part of the muscle, and will need wound care. Wound care to right forearm while awaiting referral: Clean daily with Hibiclens as provided, apply the Vaseline gauze with mupirocin ointment on the next layer, nonadherent dressing, and gently wrapped. Wound care to left hand: Mupirocin, 4 x 4, paper tape You are provided with hydrocodone here, and sent 1 home. Cut the 1 in half and utilize tonight with Robaxin and in a.m. Then take Robaxin every 6-8 hours as needed for pain with Tylenol and/or ibuprofen. Your sutures will not need to be removed for 10-14 days. As we discussed, this area that is missing part of the muscle, is high risk for infection, and if it was completely sutured dehiscing. 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
--- NOTE | 2025-04-22 16:24 | XRR_ITS ---
PROCEDURE INFORMATION: Exam: XR Right Forearm Exam date and time: 04/22/2025 4:23 PM Age: 80 years old Clinical indication: Injury or trauma; Other: Kicked by cow; Blunt trauma (contusions or hematomas); Arm, lower; Right; Additional info: Laceration, cow kick injury TECHNIQUE: Imaging protocol: Radiologic exam of the right forearm. Views: 2 views. COMPARISON: No relevant prior studies available. FINDINGS: Bones/joints: No acute fracture. Soft tissues: High-density foreign body in the subcutaneous tissues of the volar forearm measuring approximately 3 mm. Subcutaneous gas overlying the radial aspect of the proximal forearm with presumed overlying laceration. XR/XR forearm RT 2V [id number] IMPRESSION: 1. No acute fracture. 2. Subcutaneous gas overlying the radial aspect of the proximal forearm with presumed overlying laceration.
[2025-04-22] MEDS: ondansetron hcl ODT 4 mg Tab PO (16:34)
[2025-04-22] MEDS: HYDROcodone-acetaminophen 10-325 mg Tablet 1 TAB PO ×2 (16:34→17:42)
[2025-04-22] MEDS: mupirocin oint 22 gm 1 APPLIC TOPICAL (16:34)
[2025-04-22] MEDS: lidocaine-epi 1% 20 mL INJ INJECTION (16:48)
[2025-04-22] MEDS: chlorhexidine gluconate 4% Btl 118 mL 1 APPLIC TOPICAL (16:48)
[2025-04-22 18:07] VITALS: BP 129/87; PULSE 79; RESP 16; O2SAT 92
--- NOTE | 2025-04-23 09:53 | DCPLANNER ---
messaged wound care for er f/u
== END 2025-04-22 18:08 | disposition home or self-care (01) ==
PROVIDERS: Emergency Provider Physician Assistant; PCP Family Medicine
DX: S41.111A Laceration without foreign body of right upper arm, initial encounter (principal); S46.921A Laceration of unspecified muscle, fascia and tendon at shoulder and upper arm level, right arm, initial encounter; W26.0XXA Contact with knife, initial encounter; Z79.82 Long term (current) use of aspirin
CPT/HCPCS: 12034; 73090; 93005; 99284; J9999; Q0162

== ENCOUNTER → 2025-04-29 08:55 | Outpatient (BNVA) | payer MEDICARE, OTHER, SELFPAY | PROVIDERS: PCP Family Medicine; Visit Provider Thoracic Surgery (Cardiothoracic Vascular Surgery) | DX: I96 Gangrene, not elsewhere classified (principal); S51.811A Laceration without foreign body of right forearm, initial encounter; W55.22XA Struck by cow, initial encounter | CPT/HCPCS: 97597; 99203 ==

== ENCOUNTER → 2025-05-06 09:37 | Outpatient (BNVA) | payer MEDICARE, OTHER, SELFPAY | PROVIDERS: PCP Family Medicine; Visit Provider Thoracic Surgery (Cardiothoracic Vascular Surgery) | DX: I96 Gangrene, not elsewhere classified (principal); S51.811D Laceration without foreign body of right forearm, subsequent encounter; W55.22XD Struck by cow, subsequent encounter | CPT/HCPCS: 11042 ==

== ENCOUNTER → 2025-05-13 09:38 | Outpatient (BNVA) | payer MEDICARE, OTHER, SELFPAY | PROVIDERS: PCP Family Medicine; Visit Provider Thoracic Surgery (Cardiothoracic Vascular Surgery) | DX: I96 Gangrene, not elsewhere classified (principal); S51.811D Laceration without foreign body of right forearm, subsequent encounter; W55.22XD Struck by cow, subsequent encounter | CPT/HCPCS: 97597 ==

== ENCOUNTER → 2025-05-20 10:04 | Outpatient (BNVA) | payer MEDICARE, OTHER, SELFPAY | PROVIDERS: PCP Family Medicine; Visit Provider Thoracic Surgery (Cardiothoracic Vascular Surgery) | DX: I96 Gangrene, not elsewhere classified (principal); S51.811D Laceration without foreign body of right forearm, subsequent encounter; W55.22XD Struck by cow, subsequent encounter | CPT/HCPCS: 97597; A6210 ==

== ENCOUNTER → 2025-05-27 10:27 | Outpatient (BNVA) | payer MEDICARE, OTHER, SELFPAY | PROVIDERS: PCP Family Medicine; Visit Provider Thoracic Surgery (Cardiothoracic Vascular Surgery) | DX: Z09 Encounter for follow-up examination after completed treatment for conditions other than malignant neoplasm (principal); Z87.2 Personal history of diseases of the skin and subcutaneous tissue | CPT/HCPCS: J9999 ==